=== PATIENT | male | born 1950 | race Caucasian/White ===

== ENCOUNTER 2017-11-07 12:28 | Emergency (ER) | payer MEDICARE, OTHER ==
[2017-11-07] MEDS ORDERED: ONDANSETRON HCL INJ/PF 4 MG/2 ML SDV IV ONE (13:26)
[2017-11-07] MEDS ORDERED: KETOROLAC TROMETHAMINE INJ/PF 30 MG/1 ML SDV IV ONE (13:26)
--- NOTE | 2017-11-07 13:28 | ER Document Report ---
ED Medical Screen (RME) - General Chief Complaint: Abdominal Problem Stated Complaint: ABDOMINAL PAIN Time Seen by Provider: 11/07/17 13:24 Notes: Patient said he has been experiencing pain in the right lower quadrant of his abdomen since last evening. Is gotten worse this morning. Has never had this before. Has not had any vomiting or diarrhea. No fever. No UTI symptoms and no history of kidney stones. He does have a history of BPH for which she is on Flomax. Does not take medicines for anything else besides his prostate. Patient did say he saw some blood in his bowel movement 2 days ago. Has never had that before. TRAVEL OUTSIDE OF THE [place] IN LAST 30 DAYS: No - Related Data Allergies/Adverse Reactions: No Known Allergies Allergy (Verified 11/07/17 12:29) Past Medical History - Social History Frequency of alcohol use: None Drug Abuse: None Endocrine Medical History: Reports: Hx Diabetes Mellitus Type 2 Renal/ Medical History: Denies: Hx Peritoneal Dialysis Past Surgical History: Reports: Hx Orthopedic Surgery - right rotator cuff repair Physical Exam - Vital signs Vitals: Temp Pulse Resp BP Pulse Ox 98.7 F 69 18 145/84 H 94 11/07/17 12:48 11/07/17 12:48 11/07/17 12:48 11/07/17 12:48 11/07/17 12:48 Course - Vital Signs Vital signs: Temp Pulse Resp BP Pulse Ox 98.7 F 69 18 145/84 H 94 11/07/17 12:48 11/07/17 12:48 11/07/17 12:48 11/07/17 12:48 11/07/17 12:48
[2017-11-07] MEDS ORDERED: HYDROMORPHONE HCL INJ/PF 2 MG/ML AMPULE IV ONE (14:03)
--- NOTE | 2017-11-07 14:12 | ER Document Report ---
ED General - General Chief Complaint: Abdominal Problem Stated Complaint: ABDOMINAL PAIN Time Seen by Provider: 11/07/17 13:24 Mode of Arrival: Ambulatory Information source: Patient Notes: This 67-year-old male presents to the emergency department with complaints of right lower quadrant abdominal pain since yesterday. Patient denies trauma. Reports he has vomited once this morning after drinking water. Denies fever diarrhea. Reports a few days ago he saw blood in his stool but it was after he had a some constipation. He reports he had a bowel movement since that time without further blood. He reports he has never had this pain before. Patient reports voiding issues, does have a history of BPH is taking several medications for this reports this is not new. Patient reports he ate turkey gupta and eggs this morning for breakfast but has not had any more food since 830 this morning. Last p.o. intake was at 1030. TRAVEL OUTSIDE OF THE [place] IN LAST 30 DAYS: No - HPI Onset: Yesterday Onset/Duration: Sudden, Persistent Quality of pain: Sharp Severity: Severe Pain Level: 4 Associated symptoms: Vomiting Exacerbated by: Denies Relieved by: Denies Similar symptoms previously: No Recently seen / treated by doctor: No - Related Data Allergies/Adverse Reactions: No Known Allergies Allergy (Verified 11/07/17 12:29) Past Medical History - Social History Smoking Status: Former Smoker Cigarette use (# per day): No Frequency of alcohol use: None Drug Abuse: None Lives with: Family Family History: Reviewed & Not Pertinent Patient has suicidal ideation: No Patient has homicidal ideation: No Renal/ Medical History: Reports: Hx Benign Prostatic Hyperplasia. Denies: Hx Peritoneal Dialysis Past Surgical History: Reports: Hx Orthopedic Surgery - right rotator cuff repair Review of Systems - Review of Systems Notes: Review HPI for review of systems., All other systems negative Physical Exam - Vital signs Vitals: Temp Pulse Resp BP Pulse Ox 98.7 F 69 18 145/84 H 94 11/07/17 12:48 11/07/17 12:48 11/07/17 12:48 11/07/17 12:48 11/07/17 12:48 - Notes Notes: PHYSICAL EXAMINATION: GENERAL: nontoxic looking, looks like he is hurting HEAD: Atraumatic, normocephalic. EYES: Pupils equal round , extraocular movements intact, sclera anicteric, conjunctiva are normal. ENT: nares patent, Moist mucous membranes. NECK: Normal range of motion, supple without lymphadenopathy LUNGS: CTAB and equal. No wheezes rales or rhonchi. HEART: Regular rate and rhythm without murmurs ABDOMEN: Soft, c/o RLQ pain with palpation, slight Right CVA tenderness, c/o increased pain when laying flat EXTREMITIES: Normal range of motion, no pitting edema. No cyanosis. NEUROLOGICAL: Cranial nerves grossly intact. Normal sensory/motor exams. PSYCH: Normal mood, normal affect. SKIN: Warm, Dry, normal turgor, no rashes or lesions noted Course - Re-evaluation Re-evalutation: 11/07/17 14:[address] were ordered by RME provider. Pt RLQ painful to touch, movement. Possible appendicitis. Dr. Villagomez the surgeon consulted by me for possible appendicitis. He is in surgery now. Dia in the OR was instructed to tell Dr. Villagomez of consult. toradol did not help with pain. Dilaudid ordered. 11/07/17 14:49 dr villagomez in the ED, assessed patient, pt reports pain decreased, waiting on CT at 1600. 11/07/17 17:11 CT shows kidney stone 4 mm right ureter causing mild hydronephrosis mild dilatation of the proximal right ureter to her. CBC labs unremarkable. Consult Dr. Garrett, agrees with plan of care, cipro, discharge home. pt and updated on ct results. dr villagomez into room, reviewed ct. pt verbalized understanding to plan of care. doesn't want percocet. will attempt pain relief with norco. pt has not taken his flomax today. 11/07/17 19:10 PT VOIDED, REPORTS [place] took care of pain. Will discharge patient home with prescription for [place] Cipro and instructed to follow-up with urologist within the next 5 days. Patient was also instructed to return to the emergency department for increased pain fevers vomiting. Verbalized understanding tall instructions. Pt is in good spirits upon discharge - Vital Signs Vital signs: Temp Pulse Resp BP Pulse Ox 98 F 69 16 121/74 91 L 11/07/17 19:39 11/07/17 12:48 11/07/17 19:39 11/07/17 19:32 11/07/17 19:39 - Laboratory Result Diagrams: 11/07/17 14:15 11/07/17 14:15 Laboratory results interpreted by me: 11/07/17 11/07/17 11/07/17 13:28 14:15 14:15 Seg Neutrophils % 83.9 H Lymphocytes % 10.3 L BUN 23 H Creatinine 1.40 H Est GFR (Non-Af Amer) 51 L Glucose 135 H Lipase 402.6 H Urine Blood LARGE H Ur Leukocyte Esterase LARGE H - Diagnostic Test Radiology reviewed: Image reviewed, Reports reviewed - Diagnostic report text EXAM DESCRIPTION: CT ABD/PELVIS WITH IV ORAL COMPLETED DATE/TIME : 11/07/2017 4:22 pm REASON FOR STUDY: RLQ pain, also tender epigastrium COMPARISON: None. TECHNIQUE: CT scan of the abdomen and pelvis performed using helical scanning technique with dynamic intravenous contrast injection. No oral contrast. Images reviewed with lung, soft tissue, and bone windows. Reconstructed coronal and sagittal MPR images reviewed. Delayed images for evaluation of the urinary system also acquired. All images stored on PACS. All CT scanners at this facility use dose modulation, iterative reconstruction, and/ or weight based dosing when appropriate to reduce radiation dose to as low as reasonably achievable (ALARA). [facility]: Dose Right [facility]: CareDose [facility]: Dose Right [facility]: Teradose 4D [facility]: [employer] CONTRAST TYPE AND DOSE: contrast/ concentration: Isovue 370.00 mg/ml; Total Contrast Delivered: 100.0 ml; Total Saline Delivered: 72.0 ml 100 mL Isovue 370- low osmolar. RENAL FUNCTION: GFR > 60. RADIATION DOSE: CT Rad equipment meets quality standard of care and radiation dose reduction techniques were employed. CTDIvol: 13.9 - 17.2 mGy. DLP: 1715 mGy-cm.. LIMITATIONS: None. FINDINGS: LOWER CHEST: No significant findings. No nodules or infiltrates. LIVER: Normal size. No masses. No dilated ducts. SPLEEN: Normal size. No focal lesions. PANCREAS: No masses. No significant calcifications. No adjacent inflammation or peripancreatic fluid collections. Pancreatic duct not dilated. GALLBLADDER: No identified stones by CT criteria. No inflammatory changes to suggest cholecystitis. ADRENAL GLANDS: No significant masses or asymmetry. RIGHT KIDNEY AND URETER: There is moderate perinephric fat stranding. Mild dilatation of the right renal pelvis and proximal right ureter. There is a 4 mm stone in the proximal right ureter. The distal aspect of the ureter is decompressed. There is no excretion of contrast into the right kidney collecting system on the delayed images. LEFT KIDNEY AND URETER: No solid masses. No significant calcifications. No hydronephrosis or hydroureter. AORTA AND VESSELS: No aneurysm. No dissection. Renal arteries , SMA, celiac without stenosis. RETROPERITONEUM: No retroperitoneal adenopathy , hemorrhage or masses. BOWEL AND PERITONEAL CAVITY: No masses or inflammatory changes. No free fluid or peritoneal masses. APPENDIX: Normal. PELVIS: No mass. No free fluid. Normal bladder. ABDOMINAL WALL: Bilateral fat containing inguinal hernias are present. BONES: No significant or acute findings. OTHER: No other significant finding. IMPRESSION: 4 mm stone in the proximal right ureter causing mild hydronephrosis and mild dilatation of the proximal right ureter. There is also moderate right perinephric fat stranding. No excretion of contrast on delayed imaging. As such, superimposed renal and collecting system infection of this obstructing stone is not excluded - Consults kelley Time consulted: 14:05 Reason for consultation: 11/07/17 14:17 possible appendicitis. Discharge - Discharge Clinical Impression: RLQ abdominal pain, Kidney stone on right side Condition: Stable Disposition: HOME, SELF-CARE Instructions: Antinausea Medication ([facility]), Ciprofloxacin ([facility]), Kidney Stone ( [facility]), Oral Narcotic Medication ([facility]), Pain Medication Injection ([facility]), Toradol Injection ([facility]) Additional Instructions: *You have been evaluated for abdominal pain, kidney stone *Take medication as prescribed *Strain your urine *Follow up with your primary care provider within 5 days *Follow up with a urology within one week *Return to ED for worsening condition, changes, needs *Return to ED if not better in 24 hours Monitor your blood pressure. Your blood pressure was elevated today. This may be because you were anxious, in pain or because you need medication. It is important to follow up with your primary care provider for full evaluation. Prescriptions: Ciprofloxacin HCl [Cipro 500 mg Tablet] 500 mg PO BID #20 tablet Hydrocodone/Acetaminophen [[place] 5-325 Tablet] 1 each PO QID #15 tablet Forms: Elevated Blood Pressure
[2017-11-07 14:46] LABS: ABSOLUTE MONOCYTES (AUTO) 0.5 10^3/uL (0.1-1.4); ABSOLUTE NEUT (AUTO) 8.1 10^3/uL (1.7-8.2); BASOPHILS % (AUTO) 0.4 % (0-2); EOSINOPHILS % (AUTO) 0.4 % (0-6); HEMOGLOBIN 15.7 g/dL (13.5-17.0); LYMPHOCYTES % (AUTO) 10.3 % (13-45); MEAN CORPUSCULAR HEMOGLOBIN 31.2 pg (27.0-33.4); MEAN CORPUSCULAR HGB CONC 34.9 g/dL (32.0-36.0); MEAN CORPUSCULAR VOLUME 90 fl (80-97); PLATELET COUNT 153 10^3/uL (150-450); RED BLOOD COUNT 5.03 10^6/uL (4.35-5.55); RED CELL DISTRIBUTION WIDTH 13.2 % (11.5-14.0); SEGMENTED NEUTROPHILS % (AUTO) 83.9 % (42-78); TOTAL CELLS COUNTED % (AUTO) 100 %; WHITE BLOOD COUNT 9.6 10^3/uL (4.0-10.5)
[2017-11-07 14:57] LABS: APPEARANCE,URINE SLIGHTLY-CLOUDY; BILIRUBIN,URINE NEGATIVE (NEGATIVE); COLOR,URINE YELLOW; GLUCOSE, URINE NEGATIVE (NEGATIVE); KETONES,URINE NEGATIVE (NEGATIVE); LEUKOCYTE ESTERASE,URINE LARGE (NEGATIVE); NITRITE,URINE NEGATIVE (NEGATIVE); PROTEIN,URINE NEGATIVE (NEGATIVE); URINE SPECIFIC GRAVITY 1.021; UROBILINOGEN,URINE NEGATIVE mg/dL (<2.0)
[2017-11-07 15:02] LABS: ALANINE AMINOTRANSFERASE 38 U/L (21-72); ALBUMIN 4.4 g/dL (3.5-5.0); ALKALINE PHOSPHATASE 70 U/L (38-126); ANION GAP 6 (5-19); ASPARTATE AMINO TRANSFERASE 24 U/L (17-59); BILIRUBIN,DIRECT 0.3 mg/dL (0.0-0.4); BILIRUBIN,TOTAL 0.7 mg/dL (0.2-1.3); BLOOD UREA NITROGEN 23 mg/dL (7-20); CALCIUM 9.5 mg/dL (8.4-10.2); CARBON DIOXIDE 24 mmol/L (22-30); CHLORIDE 107 mmol/L (98-107); GLUCOSE 135 mg/dL (75-110); LIPASE 402.6 U/L (23-300); POTASSIUM 4.6 mmol/L (3.6-5.0); SODIUM 137.2 mmol/L (137-145); TOTAL PROTEIN 7.4 g/dL (6.3-8.2)
--- NOTE | 2017-11-07 16:46 | RADIOLOGY REPORT (SQ) ---
EXAM DESCRIPTION: CT ABD/PELVIS WITH IV ORAL COMPLETED DATE/TIME: 11/07/2017 4:22 pm REASON FOR STUDY: RLQ pain, also tender epigastrium COMPARISON: None. TECHNIQUE: CT scan of the abdomen and pelvis performed using helical scanning technique with dynamic intravenous contrast injection. No oral contrast. Images reviewed with lung, soft tissue, and bone windows. Reconstructed coronal and sagittal MPR images reviewed. Delayed images for evaluation of the urinary system also acquired. All images stored on PACS. All CT scanners at this facility use dose modulation, iterative reconstruction, and/or weight based d osing when appropriate to reduce radiation dose to as low as reasonably achievable (ALARA). [facility]: Dose Right [facility]: CareDose [facility]: Dose Right [facility]: Teradose 4D [facility]: [employer] CONTRAST TYPE AND DOSE: contrast/concentration: Isovue 370.00 mg/ml; Total Contrast Delivered: 100.0 ml; Total Saline Delivered: 72.0 ml 100 mL Isovue 370- low osmolar. RENAL FUNCTION: GFR > 60. RADIATION DOSE: CT Rad equipment meets quality standard of care and radiation dose reduction techniq ues were employed. CTDIvol: 13.9 - 17.2 mGy. DLP: 1715 mGy-cm.. LIMITATIONS: None. FINDINGS: LOWER CHEST: No significant findings. No nodules or infiltrates. LIVER: Normal size. No masses. No dilated ducts. SPLEEN: Normal size. No focal lesions. PANCREAS: No masses. No significant calcifications. No adjacent inflammation or peripancreatic fluid collections. Pancreatic duct not dilated. GALLBLADDER: No identified stones by CT criteria. No inflammatory changes to suggest cholecystitis. ADRENAL GLANDS: No significant masses or asymmetry. RIGHT KIDNEY AND URETER: There is moderate perinephric fat stranding. Mild dilatation of the right r enal pelvis and proximal right ureter. There is a 4 mm stone in the proximal right ureter. The dist al aspect of the ureter is decompressed. There is no excretion of contrast into the right kidney col lecting system on the delayed images. LEFT KIDNEY AND URETER: No solid masses. No significant calcifications. No hydronephrosis or hydr oureter. AORTA AND VESSELS: No aneurysm. No dissection. Renal arteries, SMA, celiac without stenosis. RETROPERITONEUM: No retroperitoneal adenopathy, hemorrhage or masses. BOWEL AND PERITONEAL CAVITY: No masses or inflammatory changes. No free fluid or peritoneal masses. APPENDIX: Normal. PELVIS: No mass. No free fluid. Normal bladder. ABDOMINAL WALL: Bilateral fat containing inguinal hernias are present. BONES: No significant or acute findings. OTHER: No other significant finding. IMPRESSION: 4 mm stone in the proximal right ureter causing mild hydronephrosis and mild dilatation of the proximal right ureter. There is also moderate right perinephric fat stranding. No excretion of contrast on delayed imaging. As such, superimposed renal and collecting system infection of this obstructing stone is not excluded. TECHNICAL DOCUMENTATION: JOB ID: [id number] Quality ID # [id number]: Final reports with documentation of one or more dose reduction techniques (e.g., Au tomated exposure control, adjustment of the mA and/or kV according to patient size, use of iterative reconstruction technique) 2010 [employer]- All Rights Reserved Reading location - IP/workstation name: [email or web address]
[2017-11-07] MEDS ORDERED: CIPROFLOXACIN 400 MG/D5W RTU 400 MG/200 ML RTUPB IV ONE (17:03)
[2017-11-07] MEDS ORDERED: HYDROCODONE/ACETAMINOPHEN 5-325 MG TABLET PO ONE (17:11)
[2017-11-07] MEDS ORDERED: NORMAL SALINE 1000 ML 1,000 ML IV ONE (17:11)
--- NOTE | 2017-11-07 17:34 | PDOC CONSULTATION ---
History of Present Illness Admission Date/PCP: 11/07/17 Patient complains of: RLQ pains and Right flank pains History of Present Illness: DAI MARSH is a 67 year old male who c/o RLQ pains radiating to right flank started yesterday am. Associated nausea. 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 Past Medical History Endocrine Medical History: Reports: Diabetes Mellitus Type 2 Past Surgical History Past Surgical History: Reports: Orthopedic Surgery - right rotator cuff repair Social History Lives with: Family Smoking Status: Former Smoker Family History Family History: Reviewed & Not Pertinent Parental Family History Reviewed: No Children Family History Reviewed: No Sibling(s) Family History Reviewed.: No Medication/Allergy Allergies/Adverse Reactions: No Known Allergies Allergy (Verified 11/07/17 12:29) Review of Systems Constitutional: PRESENT: as per HPI Cardiovascular: PRESENT: other - no cough/no chest pains Gastrointestinal: PRESENT: abdominal pain, nausea Genitourinary: PRESENT: other - no dysuria Neurological: PRESENT: other - no seizures Endocrine: PRESENT: other - no polyuria Hematologic/Lymphatic: PRESENT: other - no easy bruising Physical Exam Vital Signs: Temp Pulse Resp BP Pulse Ox 98.7 F 69 18 145/84 H 94 11/07/17 12:48 11/07/17 12:48 11/07/17 12:48 11/07/17 12:48 11/07/17 12:48 Intake & Output 11/06/17 11/07/17 11/08/17 06:59 06:59 06:59 Weight 96.7 kg General appearance: PRESENT: mild distress Head exam: PRESENT: atraumatic, normocephalic Eye exam: PRESENT: conjunctiva pink Mouth exam: PRESENT: moist Neck exam: PRESENT: full ROM Respiratory exam: PRESENT: clear to auscultation rosanne Cardiovascular exam: PRESENT: RRR Pulses: PRESENT: normal radial pulses Vascular exam: PRESENT: normal capillary refill GI/Abdominal exam: PRESENT: soft, tenderness - RLQ and right flank Rectal exam: PRESENT: deferred Extremities exam: PRESENT: full ROM Musculoskeletal exam: PRESENT: ambulatory Neurological exam: PRESENT: alert, oriented to person, oriented to place, oriented to time, oriented to situation Psychiatric exam: PRESENT: appropriate affect Results Laboratory Results: 11/07/17 14:15 11/07/17 14:15 11/07/17 11/07/17 11/07/17 13:28 14:15 14:15 WBC 9.6 RBC 5.03 Hgb 15.7 Hct 45.0 MCV 90 MCH 31.2 MCHC 34.9 RDW 13.2 Plt Count 153 Seg Neutrophils % 83.9 H Lymphocytes % 10.3 L Monocytes % 5.0 Eosinophils % 0.4 Basophils % 0.4 Absolute Neutrophils 8.1 Absolute Lymphocytes 1.0 Absolute Monocytes 0.5 Absolute Eosinophils 0.0 Absolute Basophils 0.0 Sodium 137.2 Potassium 4.6 Chloride 107 Carbon Dioxide 24 Anion Gap 6 BUN 23 H Creatinine 1.40 H Est GFR ( Amer) > 60 Est GFR (Non-Af Amer) 51 L Glucose 135 H Calcium 9.5 Total Bilirubin 0.7 AST 24 ALT 38 Alkaline Phosphatase 70 Total Protein 7.4 Albumin 4.4 Lipase 402.6 H Urine Color YELLOW Urine Appearance SLIGHTLY-CLOUDY Urine pH 5.0 Ur Specific [place] 1.021 Urine Protein NEGATIVE Urine Glucose (UA) NEGATIVE Urine Ketones NEGATIVE Urine Blood LARGE H Urine Nitrite NEGATIVE Ur Leukocyte Esterase LARGE H Urine WBC (Auto) 71 Urine RBC (Auto) 32 Impressions: Abdomen/Pelvis CT 11/07/17 00:00 IMPRESSION: 4 mm stone in the proximal right ureter causing mild hydronephrosis and mild dilatation of the proximal right ureter. There is also moderate right perinephric fat stranding. No excretion of contrast on delayed imaging. As such, superimposed renal and collecting system infection of this obstructing stone is not excluded. Assessment & Plan - Diagnosis (1) RLQ abdominal pain Is this a current diagnosis for this admission?: Yes - Time Time Spent: 30 to 50 Minutes - Plan Summary Plan Summary: JUst had CT scan tonsil hospital showed normal appendix. Has a right kidney stone No need for gen surgical intervention
[2017-11-07] MEDS ORDERED: TAMSULOSIN HCL 0.4 MG CAP.SR.24H PO ONE (17:49)
[2017-11-07] MEDS ORDERED: ONDANSETRON ODT 4 MG TAB (6 TAB/ER DISP) PO PRN (19:12)
[2017-11-07] MEDS ORDERED: HYDROCODONE/ACETAMINOPHEN 5-325 MG (6 TAB/ER DISP) PO PRN (19:12)
[2017-11-07 19:39] VITALS: BP 121/74
== END 2017-11-07 19:41 | disposition home or self-care (01) ==
LOC: ER 12:28
DX: N13.2 Hydronephrosis with renal and ureteral calculous obstruction (principal); R10.31 Right lower quadrant pain; R11.10 Vomiting, unspecified; N40.0 Benign prostatic hyperplasia without lower urinary tract symptoms; Z79.899 Other long term (current) drug therapy; Z87.891 Personal history of nicotine dependence
CPT/HCPCS: 99284; 96375; 96365; 36415; 87086; 83690; 85025; 87088; 80053; 81001; 74177; J1885; J1170; A9270 ×4; J2405; J7030; J0744

== ENCOUNTER → 2018-03-04 | Outpatient (CLI) | payer OTHER, MEDICARE ==
--- NOTE | 2018-02-25 22:53 | EKG REPORT ---
SEVERITY:- ABNORMAL ECG - SINUS RHYTHM LEFT ANTERIOR FASCICULAR BLOCK ABNRM R PROG, CONSIDER ASMI OR LEAD PLACEMENT : Confirmed by: Malachi Lopez 25-Feb-2018 22:52:30
[~2018-03-04] MED LIST: BUPIVACAINE HCL 0.5%-EPI 1:200000 INJ/PF 30 ML VIAL ONE; BUPIVACAINE INJ/PF LIPOSOME/PF 266 MG/20 ML SDV IJ PRN; BUPIVACAINE INJ/PF LIPOSOME/PF 266 MG/20 ML SDV ONE; CEFAZOLIN 2 GM/D5W RTU 2 GM/50 ML RTUPB IV PRN; IBUPROFEN 800 MG/NS 250 ML IV PRN; LACTATED RINGERS 1000 ML IV PRN; LANSOPRAZOLE 15 MG TAB.RAP.DR PO PRN; OXYCODONE HCL SR 10 MG TABLET PO PRN
[2018-03-04 10:50] VITALS: BP 141/84
== END ==
LOC: UNDOADMIN 09:28 → INOR 09:28 → OD 09:55 → UNDODISIN 10:49 → EDSTATUS 11:45
PROVIDERS: ATTEND Orthopaedic Surgery
DX: Z01.810 Encounter for preprocedural cardiovascular examination (principal); Z01.812 Encounter for preprocedural laboratory examination; M19.012 Primary osteoarthritis, left shoulder; I44.4 Left anterior fascicular block
CPT/HCPCS: 93005; 86900; 86901; 36415; 86850; 93010; J7050; J1741; C9290; J0690; J3490

== ENCOUNTER → 2018-03-30 | Outpatient (CLI) | payer OTHER, MEDICARE ==
[2018-03-30 13:27] LABS: ABSOLUTE EOSINOPHILS # (AUTO) 0.1 10^3/uL (0.0-0.6); ABSOLUTE LYMPHOCYTES (AUTO) 1.4 10^3/uL (0.5-4.7); ABSOLUTE MONOCYTES (AUTO) 0.4 10^3/uL (0.1-1.4); ABSOLUTE NEUT (AUTO) 3.7 10^3/uL (1.7-8.2); BASOPHILS % (AUTO) 0.6 % (0-2); EOSINOPHILS % (AUTO) 1.9 % (0-6); LYMPHOCYTES % (AUTO) 24.1 % (13-45); MEAN CORPUSCULAR HGB CONC 34.7 g/dL (32.0-36.0); MEAN CORPUSCULAR VOLUME 89 fl (80-97); MONOCYTES % (AUTO) 7.4 % (3-13); PLATELET COUNT 158 10^3/uL (150-450); RED BLOOD COUNT 5.16 10^6/uL (4.35-5.55); RED CELL DISTRIBUTION WIDTH 13.4 % (11.5-14.0); TOTAL CELLS COUNTED % (AUTO) 100 %; WHITE BLOOD COUNT 5.6 10^3/uL (4.0-10.5)
[2018-03-30 13:48] LABS: ANION GAP 12 (5-19); BLOOD UREA NITROGEN 19 mg/dL (7-20); CARBON DIOXIDE 26 mmol/L (22-30); CHLORIDE 104 mmol/L (98-107); GLUCOSE 175 mg/dL (75-110); POTASSIUM 4.9 mmol/L (3.6-5.0); SODIUM 141.9 mmol/L (137-145)
[2018-03-30 13:59] LABS: APPEARANCE,URINE CLEAR; BILIRUBIN,URINE NEGATIVE (NEGATIVE); COLOR,URINE YELLOW; GLUCOSE, URINE >=500 mg/dL (NEGATIVE); KETONES,URINE NEGATIVE (NEGATIVE); LEUKOCYTE ESTERASE,URINE TRACE (NEGATIVE); NITRITE,URINE NEGATIVE (NEGATIVE); PROTEIN,URINE NEGATIVE (NEGATIVE); URINE SPECIFIC GRAVITY 1.008; UROBILINOGEN,URINE NEGATIVE mg/dL (<2.0)
--- NOTE | 2018-03-30 14:14 | RADIOLOGY REPORT (SQ) ---
EXAM DESCRIPTION: CHEST SINGLE VIEW COMPLETED DATE/TIME: 03/30/2018 12:59 pm REASON FOR STUDY: PRE-OP COMPARISON: None. EXAM PARAMETERS: NUMBER OF VIEWS: One view. TECHNIQUE: Single frontal radiographic view of the chest acquired. RADIATION DOSE: NA LIMITATIONS: None. FINDINGS: LUNGS AND PLEURA: No opacities, masses or pneumothorax. No pleural effusion. MEDIASTINUM AND HILAR STRUCTURES: No masses. Contour normal. HEART AND VASCULAR STRUCTURES: Heart normal in size. Normal vasculature. BONES: No acute findings. HARDWARE: None in the chest. OTHER: No other significant finding. IMPRESSION: NO ACUTE RADIOGRAPHIC FINDING IN THE CHEST. TECHNICAL DOCUMENTATION: JOB ID: [id number] [employer]- All Rights Reserved Reading location - IP/workstation name: [email or web address]
== END ==
LOC: OD 12:33
PROVIDERS: ATTEND Orthopaedic Surgery
DX: Z01.810 Encounter for preprocedural cardiovascular examination (principal); Z01.812 Encounter for preprocedural laboratory examination; Z01.818 Encounter for other preprocedural examination
CPT/HCPCS: 36415; 71045; 80048; 81001; 85025

== ENCOUNTER 2018-04-22 05:23 | Inpatient (IN) | payer OTHER, MEDICARE ==
[~2018-04-22 05:23] MED LIST changes: -BUPIVACAINE HCL 0.5%-EPI 1:200000 INJ/PF 30 ML VIAL ONE; -BUPIVACAINE INJ/PF LIPOSOME/PF 266 MG/20 ML SDV IJ PRN; -BUPIVACAINE INJ/PF LIPOSOME/PF 266 MG/20 ML SDV ONE; +IBUPROFEN 800 MG in NORMAL SALINE 250 ML IV PRN; -IBUPROFEN 800 MG/NS 250 ML IV PRN; -LACTATED RINGERS 1000 ML IV PRN; +RINGERS SOLUTION,LACTATED 1,000 ML IV PRN
[2018-04-22] MEDS ORDERED: BUPIVACAINE INJ/PF LIPOSOME/PF 266 MG/20 ML SDV ONE (06:32)
[2018-04-22] MEDS ORDERED: BUPIVACAINE HCL 0.5%-EPI 1:200000 INJ/PF 30 ML VIAL ONE (06:32)
[2018-04-22] MEDS ORDERED: FENTANYL CITRATE INJ/PF 100 MCG/2 ML AMPUL ONE (07:03)
[2018-04-22] MEDS ORDERED: MIDAZOLAM 2 MG/2 ML INJ ONE (07:03)
[2018-04-22] MEDS ORDERED: DEXAMETHASONE SOD PHOSPHATE INJ 4 MG/1 ML VIAL ONE (07:03)
[2018-04-22] MEDS ORDERED: EPHEDRINE SULFATE INJ 50 MG/1 ML AMPULE ONE (07:04)
[2018-04-22] MEDS ORDERED: HYDROMORPHONE HCL INJ/PF 2 MG/ML AMPULE ONE (07:04)
[2018-04-22] MEDS ORDERED: PROPOFOL INJ 200 MG/20 ML VIAL IV ONE ×2 (07:04→07:47)
[2018-04-22] MEDS ORDERED: ONDANSETRON HCL INJ/PF 4 MG/2 ML SDV ONE (07:04)
[2018-04-22] MEDS ORDERED: ACETAMINOPHEN 1,000 MG/100 ML RTUPB IV ONE (07:04)
[2018-04-22] MEDS ORDERED: TRANEXAMIC ACID INJ/PF 1,000 MG/10 ML SDV IV ONE ×2 (07:23→12:12)
[2018-04-22] MEDS ORDERED: MEPERIDINE HCL/PF INJ 25 MG/1 ML DISP.SYRIN IV PRN (08:47)
[2018-04-22] MEDS ORDERED: ONDANSETRON HCL INJ/PF 4 MG/2 ML SDV IV PRN ×2 (08:47→12:00)
[2018-04-22] MEDS ORDERED: DIPHENHYDRAMINE HCL 50 MG/ML VIAL IV PRN (08:47)
[2018-04-22] MEDS ORDERED: FENTANYL CITRATE INJ/PF 100 MCG/2 ML AMPUL IV PRN ×3 (08:47)
[2018-04-22] MEDS ORDERED: OXYCODONE-ACETAMINOPHEN 5-325 MG TABLET PO PRN ×2 (08:47)
[2018-04-22] MEDS ORDERED: PROMETHAZINE HCL INJ 25 MG/1 ML VIAL IV PRN ×2 (08:47)
[2018-04-22] MEDS ORDERED: MORPHINE SULFATE 10 MG/ML INJ IV PRN (08:47)
[2018-04-22] MEDS ORDERED: ROCURONIUM BROMIDE INJ 50 MG/5 ML VIAL IV ONE (09:43)
[2018-04-22] MEDS ORDERED: SUCCINYLCHOLINE CHLORIDE INJ 200 MG/10 ML VIAL ONE (09:43)
[2018-04-22] MEDS ORDERED: MAG HYDROX/AL HYDROX/SIMETH SUSP 30 ML UDCUP PO PRN (12:00)
[2018-04-22] MEDS ORDERED: RINGERS SOLUTION,LACTATED 1,000 ML IV PRN (12:00)
--- NOTE | 2018-04-22 12:24 | Operative Report ---
Operative Report DATE OF SURGERY: 04/22/18 PREOPERATIVE DIAGNOSIS: Left shoulder osteoarthritis POSTOPERATIVE DIAGNOSIS: Same OPERATION: Left total shoulder arthroplasty SURGEON: ANY PERDOMO ANESTHESIA: GA TISSUE REMOVED OR ALTERED: Humeral head COMPLICATIONS: None ESTIMATED BLOOD LOSS: 200 mL INTRAOPERATIVE FINDINGS: As above PROCEDURE: Arthrex apex stem size 10 mm Humeral head component was a 52/22 mm Glenoid component was a size large Patient received antibiotics in the preop holding area. Patient was transferred to the OR where the patient was successfully intubated. Patient then was secured in a beachchair position where the left shoulder was prepped and draped in a normal sterile surgical fashion. Once timeout was done identifying the left shoulder the correct site I proceeded to use quarter percent Marcaine with epinephrine and injected in the anticipated incision. I used a 10 blade to status my incision and then used hemostasis with electrocautery. I exposed the deltopectoral interval and proceeded to do a deltopectoral approach. I retracted the conjoined tendon medially and dissecting the cephalic vein and deltoid and retracting it laterally. I reflected the subscapularis tendon off the lesser tuberosity and tagged it with a Vicryl stitch. I proceeded to release capsule to dislocate the shoulder joint. While the head was dislocated I was able to resect inferior humeral osteophyte as expected Rotator cuff is intact. I proceeded applied the guide and pinned securely after I make sure I was satisfied with the angle and retroversion of my humeral head cut. Humeral head cut was done with an oscillating saw and the piece was placed in the back table for measurement. The pins were removed and then we proceeded to broach all the way up to the appropriate size. The humeral shaft was then reflected posteriorly and glenoid retractors were placed which gave us good glenoid exposure. Labrum and superior biceps stump was resected exposing the glenoid. I proceeded then to use the glenoid guide to drill and the center portion of the glenoid. I then proceeded to ream and I had bleeding bone. Also satisfied with the size of the glenoid and then proceeded to drill the peg holes. A trial glenoid was applied and then retractors removed and the humeral head was exposed. We placed a trial head and proceeded to test range of motion and stability. Once I was satisfied with the appropriate size used and I proceeded to remove all components. I first removed the glenoid and cemented it in. wait until cement had cured and hardened. Any excess cement was removed. I then proceeded to remove the humeral stem and placed the final stem. Of note I had placed 2 drill holes in the lesser tuberosity and place FiberWire with its appropriate needle for fixation and repair of the subscapularis tendon. I followed the Arthrex technique as described in their pamphlet. Secured the inferior and superior screw using the torque limiter. Once the glenoid and stem was seated I trialed with humeral head one more time and then placed the final humeral head component. Irrigation was done at this point. I tied the sutures as instructed by the technique. Placed the arm in range of motion and noticed that the repair was solid. At this point we turned to closure and we approximated the deltoid interval after removing the retractors and closed the subcutaneous tissue with 0 Vicryl and 2-0 Vicryl. Exparel had been injected deep and then superficially. I proceeded then to close my subtenons tissue with 0 Vicryl and 2-0 Vicryl for the dermis and malissa for skin. Acticoat was applied and then covered with an OpSite dressing. Drapes were removed and the sling was applied and then the patient was placed in supine position where the patient was extubated and sent to PACU in stable condition.
--- NOTE | 2018-04-22 13:10 | RADIOLOGY REPORT (SQ) ---
EXAM DESCRIPTION: SHOULDER LEFT 1 VIEW COMPLETED DATE/TIME: 04/22/2018 12:25 pm REASON FOR STUDY: post op total shoulder M19.012 PRIMARY OSTEOARTHRITIS, LEFT SHOULDER COMPARISON: None. NUMBER OF VIEWS: AP view TECHNIQUE: AP portable view images acquired of the left shoulder. LIMITATIONS: None. FINDINGS: Post left humeral head replacement, non cemented. Grossly normal alignment at the left gl enohumeral joint. Overlying skin malissa. Left clavicle, scapula, left upper ribs intact. IMPRESSION: Appropriate left postoperative shoulder film TECHNICAL DOCUMENTATION: JOB ID: [id number] [employer]- All Rights Reserved Reading location - IP/workstation name: [email or web address]
[2018-04-22] MEDS ORDERED: CEFAZOLIN 2 GM/D5W RTU 2 GM/50 ML RTUPB IV SCH (15:00)
[2018-04-22] MEDS: CEFAZOLIN 2 GM/D5W RTU 2 GM/50 ML RTUPB IV SCH ×2 (16:44→20:38)
[2018-04-22] MEDS: SENNOSIDES/DOCUSATE 8.6-50 MG 1 EACH TABLET PO SCH (17:35)
[2018-04-22] MEDS: IBUPROFEN 800 MG in NORMAL SALINE 250 ML IV SCH (17:35)
[2018-04-22] MEDS: METFORMIN HCL 500 MG TABLET PO SCH (17:35)
[2018-04-22] MEDS ORDERED: FINASTERIDE 5 MG TABLET PO SCH (22:00)
[2018-04-23] MEDS: IBUPROFEN 800 MG in NORMAL SALINE 250 ML IV SCH ×2 (02:42→10:42)
[2018-04-23] MEDS: CEFAZOLIN 2 GM/D5W RTU 2 GM/50 ML RTUPB IV SCH ×3 (03:45→14:06)
[2018-04-23 06:57] LABS: HEMATOCRIT 35.8 % (37.9-51.0); HEMOGLOBIN 12.6 g/dL (13.5-17.0); MEAN CORPUSCULAR HEMOGLOBIN 31.6 pg (27.0-33.4); MEAN CORPUSCULAR HGB CONC 35.1 g/dL (32.0-36.0); MEAN CORPUSCULAR VOLUME 90 fl (80-97); PLATELET COUNT 130 10^3/uL (150-450); RED BLOOD COUNT 3.97 10^6/uL (4.35-5.55); RED CELL DISTRIBUTION WIDTH 13.7 % (11.5-14.0); WHITE BLOOD COUNT 12.6 10^3/uL (4.0-10.5)
[2018-04-23 07:17] LABS: ANION GAP 13 (5-19); BLOOD UREA NITROGEN 26 mg/dL (7-20); CALCIUM 8.4 mg/dL (8.4-10.2); CARBON DIOXIDE 22 mmol/L (22-30); CHLORIDE 104 mmol/L (98-107); GLUCOSE 154 mg/dL (75-110); POTASSIUM 4.6 mmol/L (3.6-5.0); SODIUM 139.2 mmol/L (137-145)
[2018-04-23] MEDS: SENNOSIDES/DOCUSATE 8.6-50 MG 1 EACH TABLET PO SCH (09:20)
[2018-04-23] MEDS: METFORMIN HCL 500 MG TABLET PO SCH (09:20)
[2018-04-23] MEDS ORDERED: PRENATAL VITAMIN W DHA CAPSULE PO SCH (10:00)
[2018-04-23] MEDS ORDERED: TAMSULOSIN HCL 0.4 MG CAP.SR.24H PO SCH (10:00)
[2018-04-23] MEDS ORDERED: FINASTERIDE 5 MG TABLET PO SCH (10:00)
[2018-04-23 18:53] VITALS: BP 113/62
== END 2018-04-23 17:30 | disposition home health service (06) | DRG 483 ==
LOC: INOR 05:23 → 4W 12:57 → 4S 15:10
PROVIDERS: ADMIT Orthopaedic Surgery; ATTEND Orthopaedic Surgery
PROC: 0RRK0JZ Replacement of Left Shoulder Joint with Synthetic Substitute, Open Approach (ICD-10-PCS; principal; 2018-04-22 07:30)
DX: M19.012 Primary osteoarthritis, left shoulder (principal); Z87.891 Personal history of nicotine dependence
CPT/HCPCS: 01630; 36415; 80048; 82962; 83036; 85027; 86850; 86900; 86901; 88304; 88311; 94799; C1713; C9290; G8978-GP; G8979-GP; G8980-GP; G8984-GO; G8985-GO; J0131; J0330; J0690; J1100; J1170; J1741; J2250; J2405; J2704; J3010; J3490; J7050

== ENCOUNTER 2019-02-21 10:33 | Day surgery (SDC) | payer OTHER, MEDICARE ==
[~2019-02-21 10:33] MED LIST changes: -CEFAZOLIN 2 GM/D5W RTU 2 GM/50 ML RTUPB IV PRN; -IBUPROFEN 800 MG in NORMAL SALINE 250 ML IV PRN; -LANSOPRAZOLE 15 MG TAB.RAP.DR PO PRN; -OXYCODONE HCL SR 10 MG TABLET PO PRN; +PROPOFOL INJ 200 MG/20 ML VIAL IV ONE; -RINGERS SOLUTION,LACTATED 1,000 ML IV PRN
[2019-02-21] MEDS ORDERED: PROPOFOL INJ 200 MG/20 ML VIAL IV ONE (13:06)
[2019-02-21 13:48] VITALS: BP 134/68
--- NOTE | 2019-02-21 15:11 | Operative Report ---
Operative Report DATE OF SURGERY: 02/21/19 Operative Report: The risks, benefits and alternatives of the procedure including the risk of bleeding, perforation requiring surgery have been explained to the patient in detail and informed consent has been obtained. Patient was taken back to the endoscopy suite and placed in the left, lateral decubital position. Timeout was called. Propofol medication is administered. A rectal examination is done which did not reveal any masses, tears or fissures. An Olympus videoscope was introduced into the patient's rectum. The scope was then carefully advanced all the way to the cecum. Cecum was identified by the usual anatomical landmarks including the ileocecal valve as well as the appendiceal office. Photodocumentation is obtained. The scope was then sequentially pulled back via the various segments of the colon including the ascending colon, hepatic flexure, transverse colon, splenic flexure, descending colon and finally into the rectosigmoid portions of the colon. Retroflexion maneuvers performed. PREOPERATIVE DIAGNOSIS: Colorectal cancer screening POSTOPERATIVE DIAGNOSIS: Large polyp noted in the rectum that was removed via snare polypectomy and retrieved in 2 separate pieces. An Endo Clip was placed at the base of the cautery site to reduce the risk of post polypectomy bleeding. Diverticulosis without any evidence of diverticulitis. Internal hemorrhoids OPERATION: Colonoscopy with snare polypectomy SURGEON: JUAN MANUEL GORDON ANESTHESIA: LMAC TISSUE REMOVED OR ALTERED: As noted above. ESTIMATED BLOOD LOSS: None. INTRAOPERATIVE FINDINGS: None. PROCEDURE: Patient tolerated the procedure well. There is no post procedure complications. Discharge date 02/21/2019. Discharge diet: Regular. Discharge activity: Regular. 2 to 3-week follow-up to discuss findings. Wait on the pathology. Likely will need 3-year surveillance colonoscopy Patient is discharged in good condition.
== END 2019-02-21 13:50 | disposition home or self-care (01) ==
LOC: END 10:33
PROVIDERS: ATTEND Internal Medicine Gastroenterology
DX: Z12.11 Encounter for screening for malignant neoplasm of colon (principal); D12.8 Benign neoplasm of rectum; K57.30 Diverticulosis of large intestine without perforation or abscess without bleeding; K64.8 Other hemorrhoids; E11.9 Type 2 diabetes mellitus without complications; Z87.891 Personal history of nicotine dependence
CPT/HCPCS: 45385; 82962; 88305 ×2; J2704; 811; 88304

== ENCOUNTER 2019-03-23 22:38 | Inpatient (IN) | payer OTHER, MEDICARE ==
--- NOTE | 2019-03-23 23:23 | ER Document Report ---
ED Medical Screen (RME) - General Chief Complaint: Shortness Of Breath Stated Complaint: RIGHT RIB PAIN,FEELING HOT Time Seen by Provider: 03/23/19 23:03 Primary Care Provider: BREANNE GARCÍA FNP [Primary Care Provider] - Follow up as needed Notes: Patient is a 68-year-old male with a history of type 2 diabetes who presents to the emergency department with a chief complaint of right rib pain. Patient states that around 5 PM this afternoon he developed an acute onset of pain behind the right lower rib. Patient states he has had similar pain in the past when he had a pneumothorax that was spontaneous in the . Patient states he has been sweating profusely and having shortness of breath. Patient denies chest pain. Patient states he is also had a dry cough for about 1 day. Patient states that over the past month he did have a significant cough that lasted weeks but he was starting to feel better. Patient states he has had chills, low-grade fever and generally not feeling well. Patient did take 1 g of Tylenol around 10 PM tonight as well as 1 baby aspirin as he thought this could be cardiac. TRAVEL OUTSIDE OF THE [place] IN LAST 30 DAYS: No - Related Data Allergies/Adverse Reactions: No Known Allergies Allergy (Verified 02/21/19 10:59) Past Medical History - Past Medical History Cardiac Medical History: Denies: Hx Coronary Artery Disease, Hx Heart Attack, Hx Hypertension Pulmonary Medical History: Denies: Hx Asthma, Hx Bronchitis, Hx COPD, Hx Pneumonia, Hx Sleep Apnea Neurological Medical History: Denies: Hx Cerebrovascular Accident, Hx Seizures Endocrine Medical History: Reports: Hx Diabetes Mellitus Type 2. Denies: Hx Hyperthyroidism, Hx Hypothyroidism Renal/ Medical History: Reports: Hx Benign Prostatic Hyperplasia. Denies: Hx End Stage Renal Disease, Hx Kidney Stones, Hx Peritoneal Dialysis GI Medical History: Denies: Hx Gastroesophageal Reflux Disease Musculoskeltal Medical History: Reports Hx Arthritis - Shoulder BILAT, Denies Hx Fibromyalgia, Denies Hx Muscular Dystrophy Psychiatric Medical History: Denies: Hx Depression, Hx Post Traumatic Stress Disorder Traumatic Medical History: Reports: Hx Fractures - collarbones, bilateral; finger; 3 ribs; rosanne ankles Past Surgical History: Reports: Hx Orthopedic Surgery - right rotator cuff repair. Denies: Hx Appendectomy, Hx Bowel Surgery, Hx Cholecystectomy, Hx Coronary Artery Bypass Graft, Hx Gastric Bypass Surgery, Hx Herniorrhaphy, Hx Pacemaker, Hx Tonsillectomy - Immunizations Hx Diphtheria, Pertussis, Tetanus Vaccination: Yes History of Influenza Vaccine for 06/2017 - 11/2017 Season: Yes Influenza Administration Date for 06/2017 - 11/2017 Season: 06/07/18 Physical Exam - Vital signs Vitals: Temp Pulse Resp BP Pulse Ox 100.5 F H 114 H 20 128/79 H 94 03/23/19 22:45 03/23/19 22:45 03/23/19 22:45 03/23/19 22:45 03/23/19 22:45 - Cardiovascular Rhythm: Regular Heart sounds: Normal auscultation, S1 appreciated, S2 appreciated Course - Re-evaluation Re-evalutation: 03/23/19 23:22 I have greeted and performed a rapid initial assessment of this patient. A comprehensive ED assessment and evaluation of the patient, analysis of test r esults and completion of the medical decision making process will be conducted by additional ED providers. - Vital Signs Vital signs: Temp Pulse Resp BP Pulse Ox 100.5 F H 114 H 20 128/79 H 94 03/23/19 22:45 03/23/19 22:45 03/23/19 22:45 03/23/19 22:45 03/23/19 22:45 Doctor's Discharge - Discharge Referrals: BREANNE GARCÍA FNP [Primary Care Provider] - Follow up as needed
--- NOTE | 2019-03-23 23:39 | RADIOLOGY REPORT (SQ) ---
EXAM DESCRIPTION: XR CHEST 2 VIEWS COMPLETED DATE/TME: 03/23/2019 00:00 CLINICAL HISTORY: 68 years, Male, rt chest pain, hx pneumothorax COMPARISON: X-ray chest 03/30/2018 NUMBER OF VIEWS: TECHNIQUE: LIMITATIONS: None. FINDINGS: In retrospect, the prior study shows an ovoid lucency projecting over the lateral aspect of the right hemithorax. This may have represented a chronic loculated pneumothorax. The current study shows a possible small air-fluid level in the inferior aspect of this probably loculated pleural air collection. Findings raise the possibility of empyema. No evidence of acute pulmonary infiltrate. The heart and mediastinum are unremarkable. IMPRESSION: Possible right-sided empyema. A CT scan of the chest might prove helpful for further evaluation. copyright 2010 [employer]- All Rights Reserved
[2019-03-23 23:57] LABS: ABSOLUTE BASOPHILS # (AUTO) 0.1 10^3/uL (0.0-0.2); ABSOLUTE LYMPHOCYTES (AUTO) 0.8 10^3/uL (0.5-4.7); ABSOLUTE MONOCYTES (AUTO) 0.9 10^3/uL (0.1-1.4); ABSOLUTE NEUT (AUTO) 12.3 10^3/uL (1.7-8.2); BASOPHILS % (AUTO) 0.5 % (0-2); EOSINOPHILS % (AUTO) 0.2 % (0-6); HEMATOCRIT 44.2 % (37.9-51.0); LYMPHOCYTES % (AUTO) 5.6 % (13-45); MEAN CORPUSCULAR HEMOGLOBIN 30.4 pg (27.0-33.4); MEAN CORPUSCULAR HGB CONC 33.9 g/dL (32.0-36.0); MEAN CORPUSCULAR VOLUME 90 fl (80-97); MONOCYTES % (AUTO) 6.1 % (3-13); PLATELET COUNT 166 10^3/uL (150-450); RED BLOOD COUNT 4.93 10^6/uL (4.35-5.55); RED CELL DISTRIBUTION WIDTH 14.1 % (11.5-14.0); SEGMENTED NEUTROPHILS % (AUTO) 87.6 % (42-78); TOTAL CELLS COUNTED % (AUTO) 100 %; WHITE BLOOD COUNT 14.1 10^3/uL (4.0-10.5)
[2019-03-23 23:59] LABS: APPEARANCE,URINE CLEAR; BILIRUBIN,URINE NEGATIVE (NEGATIVE); COLOR,URINE YELLOW; GLUCOSE, URINE NEGATIVE (NEGATIVE); KETONES,URINE NEGATIVE (NEGATIVE); LEUKOCYTE ESTERASE,URINE NEGATIVE (NEGATIVE); NITRITE,URINE NEGATIVE (NEGATIVE); PROTEIN,URINE NEGATIVE (NEGATIVE); URINE SPECIFIC GRAVITY 1.023; UROBILINOGEN,URINE NEGATIVE mg/dL (<2.0)
[2019-03-24 00:10] LABS: ALANINE AMINOTRANSFERASE 24 U/L (21-72); ALBUMIN 4.6 g/dL (3.5-5.0); ALKALINE PHOSPHATASE 70 U/L (38-126); ANION GAP 13 (5-19); ASPARTATE AMINO TRANSFERASE 20 U/L (17-59); BILIRUBIN,TOTAL 0.9 mg/dL (0.2-1.3); BLOOD UREA NITROGEN 25 mg/dL (7-20); CALCIUM 9.8 mg/dL (8.4-10.2); CARBON DIOXIDE 21 mmol/L (22-30); CHLORIDE 106 mmol/L (98-107); GLUCOSE 144 mg/dL (75-110); LIPASE 163.3 U/L (23-300); POTASSIUM 4.2 mmol/L (3.6-5.0); SODIUM 139.9 mmol/L (137-145); TOTAL PROTEIN 7.6 g/dL (6.3-8.2)
[2019-03-24] MEDS ORDERED: NORMAL SALINE 500 ML IV ONE (01:19)
[2019-03-24] MEDS ORDERED: PIPERACILLIN/TAZOBACTAM 3.375 GM VIAL IV ONE (01:19)
[2019-03-24] MEDS ORDERED: VANCOMYCIN HCL INJ 1000 MG VIAL IV ONE ×2 (01:20→03:14)
[2019-03-24] MEDS ORDERED: ACETAMINOPHEN 325 MG TABLET PO ONE (01:35)
[2019-03-24] MEDS ORDERED: IBUPROFEN 800 MG TABLET ONE (02:04)
--- NOTE | 2019-03-24 02:27 | RADIOLOGY REPORT (SQ) ---
EXAM DESCRIPTION: CT CHEST ANGIOGRAPHY WITH IV CONTRAST COMPLETED DATE/TME: 03/24/2019 01:22 CLINICAL HISTORY: 68 years, Male, ? empyema on CXR COMPARISON: X-ray chest 03/23/2019 TECHNIQUE: Axial images of the chest were performed utilizing intravenous contrast, with sagittal and coronal MIP images and sagittal and coronal reformatted images. Images stored on PACS. All CT scanners at this facility use dose modulation, iterative reconstruction, and/or weight based dosing when appropriate to reduce radiation dose to as low as reasonably achievable (ALARA). [facility]: Dose Right [facility]: CareDose [facility]: Dose Right [facility]: Teradose 4D [facility]: [email or web address] LIMITATIONS: None. FINDINGS: As seen on the prior chest x-ray, there is a collection of air and a small amount of fluid in the lateral right thorax. This lesion has a somewhat thickened wall. I believe this abnormality is most likely in the pleural space, compatible with empyema, however, if this abnormality is in the periphery of the lung, then it would represent a lung abscess. There is severe emphysema. No evidence of pulmonary embolus. No evidence of aortic dissection. IMPRESSION: Empyema versus lung abscess in the lateral right thorax. Severe emphysema. TECHNICAL DOCUMENTATION: Quality ID # 436: Final reports with documentation of one or more dose reduction techniques (e.g., Automated exposure control, adjustment of the mA and/or kV according to patient size, use of iterative reconstruction technique) copyright 2010 [email or web address]- All Rights Reserved
[2019-03-24] MEDS ORDERED: CLINDAMYCIN 300 MG/D5W RTU 300 MG/50 ML RTUPB IV ONE (03:14)
[2019-03-24] MEDS ORDERED: GLUCAGON,HUMAN RECOMB 1 MG INJ IM PRN (03:27)
[2019-03-24] MEDS ORDERED: DEXTROSE 40% GEL 15 GM TUBE PO PRN ×2 (03:27)
[2019-03-24] MEDS ORDERED: IPRATROPIUM/ALBUTEROL 0.5-2.5 MG/3 ML AMPUL NEB PRN (03:27)
[2019-03-24] MEDS ORDERED: GUAIFENESIN SYRP 200 MG/10 ML UDC PO PRN (03:27)
[2019-03-24] MEDS ORDERED: DEXTROSE 50%-WATER 25 GM/50 ML DISP.SYRIN IV PRN ×2 (03:27)
--- NOTE | 2019-03-24 03:29 | ER Document Report ---
ED General - General Chief Complaint: Shortness Of Breath Stated Complaint: RIGHT RIB PAIN,FEELING HOT Time Seen by Provider: 03/23/19 23:03 Primary Care Provider: BREANNE GARCÍA FNP [Primary Care Provider] - Follow up as needed Notes: Patient is a 68-year-old male who presents with complaint of pain in his right lower lung. Says worse with coughing or taking deep breath. He said this started earlier yesterday. He also notes that he was sweating and sometimes having chills. He did not check his temp at home. He has a history of emphysema. Is not currently seeing a splicing technician. He is a former smoker. He did have a pneumothorax back in the 80s. No lung surgery since then. No other complaints at this time. TRAVEL OUTSIDE OF THE [place] IN LAST 30 DAYS: No - Related Data Allergies/Adverse Reactions: No Known Allergies Allergy (Verified 02/21/19 10:59) Past Medical History - Social History Smoking Status: Former Smoker Chew tobacco use (# tins/day): No Frequency of alcohol use: None Drug Abuse: None Family History: Reviewed & Not Pertinent Patient has suicidal ideation: No Patient has homicidal ideation: No - Past Medical History Cardiac Medical History: Denies: Hx Coronary Artery Disease, Hx Heart Attack, Hx Hypertension Pulmonary Medical History: Denies: Hx Asthma, Hx Bronchitis, Hx COPD, Hx Pneumonia, Hx Sleep Apnea Neurological Medical History: Denies: Hx Cerebrovascular Accident, Hx Seizures Endocrine Medical History: Reports: Hx Diabetes Mellitus Type 2. Denies: Hx Hyperthyroidism, Hx Hypothyroidism Renal/ Medical History: Reports: Hx Benign Prostatic Hyperplasia. Denies: Hx End Stage Renal Disease, Hx Kidney Stones, Hx Peritoneal Dialysis GI Medical History: Denies: Hx Gastroesophageal Reflux Disease Musculoskeletal Medical History: Reports Hx Arthritis - Shoulder BILAT, Denies Hx Fibromyalgia, Denies Hx Muscular Dystrophy Psychiatric Medical History: Denies: Hx Depression, Hx Post Traumatic Stress Disorder Traumatic Medical History: Reports: Hx Fractures - collarbones, bilateral; finger; 3 ribs; rosanne ankles Past Surgical History: Reports: Hx Orthopedic Surgery - right rotator cuff repair. Denies: Hx Appendectomy, Hx Bowel Surgery, Hx Cholecystectomy, Hx Coronary Artery Bypass Graft, Hx Gastric Bypass Surgery, Hx Herniorrhaphy, Hx Pacemaker, Hx Tonsillectomy - Immunizations Hx Diphtheria, Pertussis, Tetanus Vaccination: Yes Hx Pneumococcal Vaccination: 12/06/18 Review of Systems - Review of Systems Notes: My Normal Review Basic REVIEW OF SYSTEMS: CONSTITUTIONAL : Denies fever, chills, or sweats. Denies recent illness. EENT: Denies eye, ear, throat, or mouth pain or symptoms. Denies nasal or sinus congestion. CARDIOVASCULAR: Denies chest pain. RESPIRATORY: Denies cough, cold, or chest congestion. Denies shortness of breath, difficulty breathing, or wheezing. GASTROINTESTINAL: Denies abdominal pain. Denies nausea, vomiting, or diarrhea. MUSCULOSKELETAL: Denies neck or back pain or joint pain or swelling. SKIN: Denies rash or skin lesions. HEMATOLOGIC : Denies easy bruising or bleeding. NEUROLOGICAL: Denies altered mental status or loss of consciousness. Denies headache. Denies weakness or paralysis or loss of use of either side. Denies p roblems with gait or speech. Denies sensory or motor loss. ALL OTHER SYSTEMS REVIEWED AND NEGATIVE. Physical Exam - Vital signs Vitals: Temp Pulse Resp BP Pulse Ox 100.5 F H 114 H 20 128/79 H 94 03/23/19 22:45 03/23/19 22:45 03/23/19 22:45 03/23/19 22:45 03/23/19 22:45 Course - Re-evaluation Re-evalutation: 03/24/19 03:[address] scan shows empyema versus abscess. I usually try to talk with the splicing technician on-call, Dr. Cortes. We initially did not get call back and therefore called the hospitalist. Spoke with Dr. Olvera who says that he would need pulmonology's input for accepting the patient for admission. I did eventua lly get in touch with Dr. Cortes who requested chest tube. I informed him that I do not feel comfortable with the chest tube as the area is very small and the patient has large lung bullae and therefore I feel that this would lead to a worse outcome. He said that I should speak with general surgery with recommendations about what to go with further. I did speak with Dr. Joshua Cao, general surgeon, who says that the empyema versus abscess is too small for a chest tube and that this patient would have a worse outcome because of air leak if we did try place the chest tube. He said appropriate treatment would be CT-guided needle drainage. He said this can be done here and that the surgical team would be happy to follow along with this care plan. I called back Dr. Olvera with recommendations and agrees to evaluate the patient for admission. Dictation of this chart was performed using voice recognition software; therefore, there may be some unintended grammatical errors. - Vital Signs Vital signs: Temp Pulse Resp BP Pulse Ox 100.3 F 114 H 20 128/79 H 94 03/24/19 01:12 03/23/19 22:45 03/23/19 22:45 03/23/19 22:45 03/23/19 22:45 - Laboratory Result Diagrams: 03/23/19 23:40 03/23/19 23:40 Laboratory results interpreted by me: 03/23/19 03/23/19 03/23/19 23:40 23:40 23:40 WBC 14.1 H RDW 14.1 H Seg Neutrophils % 87.6 H Lymphocytes % 5.6 L Absolute Neutrophils 12.3 H Carbon Dioxide 21 L BUN 25 H Creatinine 1.37 H Est GFR (Non-Af Amer) 52 L Glucose 144 H Urine Blood SMALL H Discharge - Discharge Clinical Impression: Empyema Condition: Stable Disposition: ADMITTED INPATIENT Admitting Provider: Wade (Hospitalist) Unit Admitted: Telemetry Referrals: BREANNE AGRCÍA FNP [Primary Care Provider] - Follow up as needed
[2019-03-24] MEDS ORDERED: VANCOMYCIN HCL 0 MG in DEXTROSE 5%-WATER 250 ML IV NR (03:30)
[2019-03-24] MEDS ORDERED: PIPERACILLIN/TAZOBACTAM 4.5 GM VIAL IV PRN (03:34)
[2019-03-24] MEDS ORDERED: VANCOMYCIN HCL INJ 1000 MG VIAL IV PRN (03:36)
[2019-03-24 03:40] LABS: INTERNATIONAL RATION (INR) 0.95; PROTHROMBIN TIME 12.7 SEC (11.4-15.4)
[2019-03-24 03:41] LABS: PARTIAL THROMBOPLASTIN TIME 27.1 SEC (23.5-35.8)
[2019-03-24] MEDS ORDERED: VANCOMYCIN HCL 1,000 MG in DEXTROSE 5%-WATER 250 ML IV ONE (04:00)
--- NOTE | 2019-03-24 04:44 | PDOC H&P ---
History of Present Illness Admission Date/PCP: 03/24/19 03:38 LELA SHARPE Patient complains of: Fever and right-sided chest pain History of Present Illness: DAI MARSH is a 68 year old male with a past medical history of diabetes, CKD 2, emphysema with remote pneumothorax. He presents with 24 hours of fever and right-sided chest pain which is sharp in nature exacerbated by deep breathing and movement. In the emergency room is found to have leukocytosis, a right sided peripheral abscess with associated empyema. Pulmonology is consulted, he started on empiric antibiotics and referred to the hospitalist for admission. He admits to recent aspiration or poor dentition. As a child he had several episodes of severe pneumonia. Patient is a [id number] history discontinuing 7 years ago. His father of coal mining silicosis. 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 Past Medical History Cardiac Medical History: Denies: Coronary Artery Disease, Myocardial Infarction, Hypertension Pulmonary Medical History: Denies: Asthma, Bronchitis, Chronic Obstructive Pulmonary Disease (COPD), Pn eumonia, Sleep Apnea Neurological Medical History: Denies: Seizures Endocrine Medical History: Reports: Diabetes Mellitus Type 2 Denies: Hyperthyroidism, Hypothyroidism Renal/ Medical History: Reports: Chronic Kidney Disease Denies: End Stage Renal Disease GI Medical History: Denies: Gastroesophageal Reflux Disease Musculoskeltal Medical History: Reports: Arthritis - Shoulder BILAT Denies: Fibromyalgia Psychiatric Medical History: Denies: Depression, Post Traumatic Stress Disorder Hematology: Denies: Anemia Past Surgical History Past Surgical History: Reports: Orthopedic Surgery - right rotator cuff repair Denies: Appendectomy, Cholecystectomy, Coronary Artery Bypass Graft, Gastric Bypass Surgery, Herniorrhaphy, Pacemaker, Tonsillectomy Social History Information Source: Patient, [facility] Records Lives with: Family Smoking Status: Former Smoker Frequency of Alcohol Use: None Hx Recreational Drug Use: No Hx Prescription Drug Abuse: No - Advance Directive Resuscitation Status: Full Code Family History Family History: Other - Silicosis Parental Family History Reviewed: Yes Children Family History Reviewed: Yes Sibling(s) Family History Reviewed.: Yes Medication/Allergy Home Medications: Multivitamin [Multiple Vitamins] 1 tab PO DAILY 02/17/18 Metformin HCl 500 mg PO BID 04/15/18 Allergies/Adverse Reactions: No Known Allergies Allergy (Verified 02/21/19 10:59) Review of Systems Constitutional: ABSENT: chills, fever(s), headache(s), weight gain, weight loss Eyes: ABSENT: visual disturbances Ears: ABSENT: hearing changes Cardiovascular: ABSENT: chest pain, dyspnea on exertion, edema, orthropnea, palpitations Respiratory: ABSENT: cough, hemoptysis Gastrointestinal: ABSENT: abdominal pain, constipation, diarrhea, hematemesis, hematochezia, nausea, vomiting Genitourinary: ABSENT: dysuria, hematuria Musculoskeletal: ABSENT: joint swelling Integumentary: ABSENT: rash, wounds Neurological: ABSENT: abnormal gait, abnormal speech, confusion, dizziness, focal weakness, syncope Psychiatric: ABSENT: anxiety, depression, homidical ideation, suicidal ideation Endocrine: ABSENT: cold intolerance, heat intolerance, polydipsia, polyuria Hematologic/Lymphatic: ABSENT: easy bleeding, easy bruising Physical Exam Vital Signs: Temp Pulse Resp BP Pulse Ox 100.3 F 114 H 20 128/79 H 94 03/24/19 01:12 03/23/19 22:45 03/23/19 22:45 03/23/19 22:45 03/23/19 22:45 Intake & Output 03/22/19 03/23/19 03/24/19 11:59 11:59 11:59 Intake Total 500 Balance 500 Weight 91.3 kg General appearance: PRESENT: cooperative, mild distress, thin. ABSENT: disheveled Head exam: PRESENT: atraumatic, normocephalic Eye exam: PRESENT: conjunctiva pink, EOMI, PERRLA. ABSENT: scleral icterus Ear exam: PRESENT: normal external ear exam Mouth exam: PRESENT: moist, tongue midline Neck exam: ABSENT: carotid bruit, JVD, lymphadenopathy, thyromegaly, tracheal deviation Respiratory exam: PRESENT: accessory muscle use, crackles, prolonged expiratory phas, retraction. ABSENT: rhonchi Cardiovascular exam: PRESENT: RRR. ABSENT: diastolic murmur, rubs, systolic murmur Pulses: PRESENT: normal dorsalis pedis pul Vascular exam: PRESENT: normal capillary refill GI/Abdominal exam: PRESENT: normal bowel sounds, soft. ABSENT: distended, guarding, mass, organolmegaly, rebound, tenderness Rectal exam: PRESENT: deferred Extremities exam: PRESENT: full ROM. ABSENT: calf tenderness, clubbing, pedal edema Neurological exam: PRESENT: alert, awake, oriented to person, oriented to place, oriented to time, oriented to situation, CN II-XII grossly intact. ABSENT: motor sensory deficit Psychiatric exam: PRESENT: appropriate affect, normal mood. ABSENT: homicidal ideation, suicidal ideation Skin exam: PRESENT: dry, intact, warm. ABSENT: cyanosis, rash Results Laboratory Results: 03/23/19 23:40 03/23/19 23:40 03/23/19 03/23/19 03/23/19 23:40 23:40 23:40 WBC 14.1 H RBC 4.93 Hgb 15.0 Hct 44.2 MCV 90 MCH 30.4 MCHC 33.9 RDW 14.1 H Plt Count 166 Seg Neutrophils % 87.6 H Lymphocytes % 5.6 L Monocytes % 6.1 Eosinophils % 0.2 Basophils % 0.5 Absolute Neutrophils 12.3 H Absolute Lymphocytes 0.8 Absolute Monocytes 0.9 Absolute Eosinophils 0.0 Absolute Basophils 0.1 Sodium 139.9 Potassium 4.2 Chloride 106 Carbon Dioxide 21 L Anion Gap 13 BUN 25 H Creatinine 1.37 H Est GFR ( Amer) > 60 Est GFR (Non-Af Amer) 52 L Glucose 144 H Calcium 9.8 Total Bilirubin 0.9 AST 20 ALT 24 Alkaline Phosphatase 70 Total Protein 7.6 Albumin 4.6 Lipase 163.3 Urine Color YELLOW Urine Appearance CLEAR Urine pH 5.0 Ur Specific [place] 1.023 Urine Protein NEGATIVE Urine Glucose (UA) NEGATIVE Urine Ketones NEGATIVE Urine Blood SMALL H Urine Nitrite NEGATIVE Ur Leukocyte Esterase NEGATIVE Urine WBC (Auto) 1 Urine RBC (Auto) 1 03/23/19 23:40 Troponin I < 0.012 Impressions: Chest X-Ray 03/23/19 00:00 IMPRESSION: Possible right-sided empyema. A CT scan of the chest might prove helpful for further evaluation. copyright 2010 [employer]- All Rights Reserved Chest/Abdomen CTA 03/24/19 01:22 IMPRESSION: Empyema versus lung abscess in the lateral right thorax. Severe emphysema. TECHNICAL DOCUMENTATION: Quality ID # 436: Final reports with documentation of one or more dose reduction techniques (e.g., Automated exposure control, adjustment of the mA and/or kV according to patient size, use of iterative reconstruction technique) copyright 2011 [employer]- All Rights Reserved Assessment and Plan - Diagnosis (1) Lung abscess Is this a current diagnosis for this admission?: Yes Plan: Empiric antibiotics initiated, follow-up pulmonology, interventional radiology consult. (2) Emphysema of lung Is this a current diagnosis for this admission?: Yes Plan: Incentive spirometry, flutter valve, supplemental oxygen (3) CKD (chronic kidney disease) Is this a current diagnosis for this admission?: Yes Plan: At baseline, avoid nephrotoxic meds and doses, follow-up chemistry (4) Empyema Is this a current diagnosis for this admission?: Yes Plan: Follow-up pulmonology consult, thoracentesis versus chest tube. - Time Time Spent with patient: 35 or more minutes - Inpatient Certification Medical Necessity: Need Close Monitoring Due to Risk of Patient Decompensation
[2019-03-24] MEDS: HEPARIN SOD (PORCINE) 5,000 UNIT/ML 1 ML VIAL SUBCUT SCH ×3 (05:49→21:18)
[2019-03-24] MEDS ORDERED: PIPERACILLIN SODIUM/TAZOBACTAM 4.5 GM in NORMAL SALINE 100 ML IV SCH (06:00)
[2019-03-24] MEDS ORDERED: PIPERACILLIN/TAZOBACTAM 4.5 GM VIAL IV ONE (06:01)
--- NOTE | 2019-03-24 07:27 | PDOC CONSULTATION ---
Consultation Consult Date: 03/24/19 Provider Consulted: SURGICAL SURGICALIST MD Consult reason:: "lung infection" History of Present Illness Admission Date/PCP: 03/24/19 03:38 LELA SHARPE Patient complains of: chest pain, cough History of Present Illness: DAI MARSH is a 68 year old diabetic male with a 3-week history of intermittent chest pain. Yesterday, his chest pain became severe. He also reported a cough with intermittent fevers and chills. The patient has difficulty with taking deep breaths. He denies any exposure to farm animals, chickens, pigs, exposure to mold or construction sites. He presented to the emergency department where an x-ray was performed showing an abnormality in the right lung. A CT scan was then performed suggestive of infection with possible abscess formation. The patient denies abdominal pain, headache, dizziness, orth ostasis, significant shortness of breath, weakness, paresthesias, blurry vision. The patient does not know what his A1c is. He does not know what his last blood sugar was. He reports he checks it "sometimes". Past Medical History Cardiac Medical History: Denies: Coronary Artery Disease, Myocardial Infarction, Hypertension Pulmonary Medical History: Denies: Asthma, Bronchitis, Chronic Obstructive Pulmonary Disease (COPD), Pn eumonia, Sleep Apnea Neurological Medical History: Denies: Seizures Endocrine Medical History: Reports: Diabetes Mellitus Type 2 Denies: Hyperthyroidism, Hypothyroidism Renal/ Medical History: Reports: Chronic Kidney Disease Denies: End Stage Renal Disease GI Medical History: Denies: Gastroesophageal Reflux Disease Musculoskeltal Medical History: Reports: Arthritis - Shoulder BILAT Denies: Fibromyalgia Psychiatric Medical History: Denies: Depression, Post Traumatic Stress Disorder Hematology: Denies: Anemia Past Surgical History Past Surgical History: Reports: Orthopedic Surgery - right rotator cuff repair Denies: Appendectomy, Cholecystectomy, Coronary Artery Bypass Graft, Gastric Bypass Surgery, Herniorrhaphy, Pacemaker, Tonsillectomy Social History Lives with: Family Smoking Status: Former Smoker Frequency of Alcohol Use: None Hx Recreational Drug Use: No Hx Prescription Drug Abuse: No - Advance Directive Resuscitation Status: Full Code Family History Family History: Other - Silicosis Parental Family History Reviewed: Yes Children Family History Reviewed: Yes Sibling(s) Family History Reviewed.: Yes Medication/Allergy Home Medications: Multivitamin [Multiple Vitamins] 1 tab PO DAILY 06/13/18 Metformin HCl 500 mg PO BID 04/15/18 Allergies/Adverse Reactions: amoxicillin Allergy (Intermediate, Verified 03/24/19 06:58) Hives Review of Systems Constitutional: PRESENT: chills, fatigue, fever(s). ABSENT: anorexia, weakness Eyes: ABSENT: visual disturbances Ears: ABSENT: hearing changes Nose, Mouth, and Throat: ABSENT: sore throat Cardiovascular: PRESENT: chest pain Respiratory: PRESENT: cough, dyspnea - mild Gastrointestinal: ABSENT: abdominal pain, constipation, heartburn, hematemesis, hematochezia Genitourinary: ABSENT: dysuria Musculoskeletal: ABSENT: back pain Integumentary: ABSENT: pruritus, rash Neurological: ABSENT: confusion, convulsions, dizziness Psychiatric: ABSENT: anxiety, depression Endocrine: ABSENT: cold intolerance, heat intolerance Hematologic/Lymphatic: ABSENT: easy bleeding, easy bruising Physical Exam Vital Signs: Temp Pulse Resp BP Pulse Ox 98.2 F 67 18 119/58 L 96 03/24/19 05:36 03/24/19 05:36 03/24/19 05:36 03/24/19 05:36 03/24/19 05:36 Intake & Output 03/22/19 03/23/19 03/24/19 06:59 06:59 06:59 Intake Total 550 Balance 550 Weight 91.3 kg General appearance: PRESENT: no acute distress, cooperative Head exam: PRESENT: atraumatic, normocephalic Eye exam: PRESENT: EOMI, PERRLA. ABSENT: scleral icterus Mouth exam: PRESENT: moist, neck supple Neck exam: ABSENT: meningismus, tenderness, thyromegaly, tracheal deviation Respiratory exam: PRESENT: chest wall tenderness - right anterior chest Cardiovascular exam: PRESENT: RRR Pulses: PRESENT: normal radial pulses Vascular exam: PRESENT: normal capillary refill GI/Abdominal exam: PRESENT: soft. ABSENT: distended, guarding, rebound, tenderness Rectal exam: PRESENT: deferred Extremities exam: ABSENT: clubbing Musculoskeletal exam: ABSENT: deformity Neurological exam: PRESENT: alert, awake, oriented to person, oriented to place, oriented to time, oriented to situation, CN II-XII grossly intact Psychiatric exam: ABSENT: agitated, anxious, depressed Skin exam: ABSENT: cyanosis, erythema, jaundice Results Laboratory Results: 03/23/19 23:40 03/23/19 23:40 03/23/19 03/23/1919 23:40 23:40 23:40 WBC 14.1 H RBC 4.93 Hgb 15.0 Hct 44.2 MCV 90 MCH 30.4 MCHC 33.9 RDW 14.1 H Plt Count 166 Seg Neutrophils % 87.6 H Lymphocytes % 5.6 L Monocytes % 6.1 Eosinophils % 0.2 Basophils % 0.5 Absolute Neutrophils 12.3 H Absolute Lymphocytes 0.8 Absolute Monocytes 0.9 Absolute Eosinophils 0.0 Absolute Basophils 0.1 Sodium 139.9 Potassium 4.2 Chloride 106 Carbon Dioxide 21 L Anion Gap 13 BUN 25 H Creatinine 1.37 H Est GFR ( Amer) > 60 Est GFR (Non-Af Amer) 52 L Glucose 144 H Calcium 9.8 Total Bilirubin 0.9 AST 20 ALT 24 Alkaline Phosphatase 70 Total Protein 7.6 Albumin 4.6 Lipase 163.3 Urine Color YELLOW Urine Appearance CLEAR Urine pH 5.0 Ur Specific Perrin 1.023 Urine Protein NEGATIVE Urine Glucose (UA) NEGATIVE Urine Ketones NEGATIVE Urine Blood SMALL H Urine Nitrite NEGATIVE Ur Leukocyte Esterase NEGATIVE Urine WBC (Auto) 1 Urine RBC (Auto) 1 03/23/19 23:40 Troponin I < 0.012 Impressions: Chest X-Ray 03/23/19 00:00 IMPRESSION: Possible right-sided empyema. A CT scan of the chest might prove helpful for further evaluation. copyright 2010 [employer]- All Rights Reserved Chest/Abdomen CTA 03/24/19 01:22 IMPRESSION: Empyema versus lung abscess in the lateral right thorax. Severe emphysema. TECHNICAL DOCUMENTATION: Quality ID # 436: Final reports with documentation of one or more dose reduction techniques (e.g., Automated exposure control, adjustment of the mA and/or kV according to patient size, use of iterative reconstruction technique) copyright 2011 [employer]- All Rights Reserved Assessment & Plan - Diagnosis (1) Pneumonia of right lung due to infectious organism Qualifiers: Lung location: middle lobe of lung Qualified Code(s): J18.1 - Lobar pneumonia, unspecified organism Is this a current diagnosis for this admission?: Yes - Plan Summary Plan Summary: This is a 68-year-old male with a 3-week history of intermittent chest wall pain. The patient reports severe pain over the last 24 hours. He reports fevers and chills. He also reports pain with deep inspiration and mild shortness of breath. He is a diabetic. I have reviewed the patient's CT scan images and report. I do not see any overt evidence of empyema. Patient does have a tiny amount of fluid in an area of thickened lung, situated around a large bulla. The area is so small, I do not believe thoracotomy is warranted. Tube thoracostomy would likely be ineffective. At this time, I would recommend intravenous antibiotics and repeat imaging. If aspiration is required, image guided aspiration/biopsy would be the procedure of choice. We will continue to follow this patient with you. No surgery is planned at this time.
[2019-03-24] MEDS: IPRATROPIUM/ALBUTEROL 0.5-2.5 MG/3 ML AMPUL NEB SCH ×3 (08:11→19:34)
--- NOTE | 2019-03-24 08:58 | EKG REPORT ---
SEVERITY:- ABNORMAL ECG - SINUS RHYTHM LEFT ANTERIOR FASCICULAR BLOCK CONSIDER ANTEROSEPTAL INFARCT : Confirmed by: Ramo Martinez MD 24-Mar-2019 08:57:20
[2019-03-24] MEDS: INSULIN LISPRO 100 UNIT/ML 3 ML VIAL SUBCUT SCH ×3 (09:02→16:34)
[2019-03-24] MEDS: PIPERACILLIN SODIUM/TAZOBACTAM 4.5 GM in NORMAL SALINE 100 ML IV SCH ×3 (09:21→21:18)
[2019-03-24] MEDS: VANCOMYCIN HCL 1,250 MG in DEXTROSE 5%-WATER 250 ML IV SCH ×2 (14:09→23:07)
[2019-03-24] MEDS: ACETAMINOPHEN 325 MG TABLET PO PRN (14:14)
[2019-03-25] MEDS: IPRATROPIUM/ALBUTEROL 0.5-2.5 MG/3 ML AMPUL NEB SCH ×4 (02:12→20:55)
[2019-03-25] MEDS: PIPERACILLIN SODIUM/TAZOBACTAM 4.5 GM in NORMAL SALINE 100 ML IV SCH ×4 (03:26→21:22)
[2019-03-25] MEDS: HEPARIN SOD (PORCINE) 5,000 UNIT/ML 1 ML VIAL SUBCUT SCH ×3 (05:45→21:29)
[2019-03-25] MEDS: VANCOMYCIN HCL 1,250 MG in DEXTROSE 5%-WATER 250 ML IV SCH (05:49)
[2019-03-25] MEDS: ACETAMINOPHEN 325 MG TABLET PO PRN ×3 (05:53→23:21)
[2019-03-25 07:32] LABS: ANION GAP 10 (5-19); BLOOD UREA NITROGEN 22 mg/dL (7-20); CALCIUM 8.6 mg/dL (8.4-10.2); CARBON DIOXIDE 21 mmol/L (22-30); CHLORIDE 104 mmol/L (98-107); GLUCOSE 172 mg/dL (75-110); POTASSIUM 3.8 mmol/L (3.6-5.0); SODIUM 135.2 mmol/L (137-145)
[2019-03-25 07:33] LABS: VANCOMYCIN,TROUGH 16.1 ug/mL (5.0-20.0)
[2019-03-25] MEDS ORDERED: DEXTROSE 50%-WATER 25 GM/50 ML DISP.SYRIN IV PRN ×2 (08:16)
[2019-03-25] MEDS ORDERED: DEXTROSE 40% GEL 15 GM TUBE PO PRN ×2 (08:16)
[2019-03-25] MEDS ORDERED: GLUCAGON,HUMAN RECOMB 1 MG INJ IM PRN (08:16)
[2019-03-25 08:40] LABS: ABSOLUTE BASOPHILS # (AUTO) 0.1 10^3/uL (0.0-0.2); ABSOLUTE LYMPHOCYTES (AUTO) 1.4 10^3/uL (0.5-4.7); ABSOLUTE MONOCYTES (AUTO) 0.9 10^3/uL (0.1-1.4); ABSOLUTE NEUT (AUTO) 13.2 10^3/uL (1.7-8.2); BASOPHILS % (AUTO) 0.4 % (0-2); HEMATOCRIT 40.1 % (37.9-51.0); HEMOGLOBIN 13.7 g/dL (13.5-17.0); LYMPHOCYTES % (AUTO) 8.7 % (13-45); MEAN CORPUSCULAR HEMOGLOBIN 30.7 pg (27.0-33.4); MEAN CORPUSCULAR HGB CONC 34.2 g/dL (32.0-36.0); MEAN CORPUSCULAR VOLUME 90 fl (80-97); MONOCYTES % (AUTO) 5.7 % (3-13); PLATELET COUNT 115 10^3/uL (150-450); RED BLOOD COUNT 4.47 10^6/uL (4.35-5.55); RED CELL DISTRIBUTION WIDTH 13.7 % (11.5-14.0); SEGMENTED NEUTROPHILS % (AUTO) 85.2 % (42-78); TOTAL CELLS COUNTED % (AUTO) 100 %; WHITE BLOOD COUNT 15.5 10^3/uL (4.0-10.5)
[2019-03-25] MEDS: INSULIN LISPRO 100 UNIT/ML 3 ML VIAL SUBCUT SCH ×3 (09:47→17:11)
--- NOTE | 2019-03-25 14:38 | PDOC PROGRESS REPORT ---
Subjective Progress Note for:: 03/25/19 Subjective:: DAI MARSH is a 68 year old male with a past medical history of diabetes, CKD 2, emphysema with remote pneumothorax. He presents with 24 hours of fever and right-sided chest pain which is sharp in nature exacerbated by deep breathing and movement. In the emergency room is found to have leukocytosis, a right sided peripheral abscess with associated empyema. Pulmonology is consulted, he started on empiric antibiotics and referred to the hospitalist for admission. He admits to recent aspiration or poor dentition. As a child he had several episodes of severe pneumonia. Patient is a [id number] history discontinuing 7 years ago. His father of coal mining silicosis. 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 03/25/2019. No acute events overnight. Patient is complaining of on and off mild pleuritic chest pain otherwise p.o. tolerant, ambulatory, having normal bowel and bladder movements, denies any fever, chills, nausea, vomiting, diarrhea, constipation or any urinary symptoms. Reason For Visit: LUNG ABSCESS,PNEUMONIA Physical Exam Vital Signs: Temp Pulse Resp BP Pulse Ox 98.8 F 78 18 119/53 L 92 03/25/19 12:25 03/25/19 14:05 03/25/19 14:05 03/25/19 12:25 03/25/19 14:05 Intake & Output 03/24/19 03/25/19 03/26/19 06:59 06:59 06:59 Intake Total 550 1810 100 Output Total 400 Balance 550 1410 100 Weight 91.3 kg 89.8 kg General appearance: PRESENT: no acute distress, well-developed, well-nourished Head exam: PRESENT: atraumatic, normocephalic Eye exam: PRESENT: conjunctiva pink, EOMI, PERRLA. ABSENT: scleral icterus Ear exam: PRESENT: normal external ear exam Mouth exam: PRESENT: moist, tongue midline Neck exam: ABSENT: carotid bruit, JVD, lymphadenopathy, thyromegaly Respiratory exam: PRESENT: clear to auscultation rosanne. ABSENT: rales, rhonchi, wheezes Cardiovascular exam: PRESENT: RRR. ABSENT: diastolic murmur, rubs, systolic murmur Pulses: PRESENT: normal dorsalis pedis pul Vascular exam: PRESENT: normal capillary refill GI/Abdominal exam: PRESENT: normal bowel sounds, soft. ABSENT: distended, guarding, mass, organolmegaly, rebound, tenderness Rectal exam: PRESENT: deferred Extremities exam: PRESENT: full ROM. ABSENT: calf tenderness, clubbing, pedal edema Neurological exam: PRESENT: alert, awake, oriented to person, oriented to place, oriented to time, oriented to situation, CN II-XII grossly intact. ABSENT: motor sensory deficit Psychiatric exam: PRESENT: appropriate affect, normal mood. ABSENT: homicidal i deation, suicidal ideation Skin exam: PRESENT: dry, intact, warm. ABSENT: cyanosis, rash Results Laboratory Results: 03/25/19 08:29 03/25/19 05:42 03/25/19 03/25/19 03/25/19 05:42 05:42 08:29 WBC Cancelled 15.5 H RBC Cancelled 4.47 Hgb Cancelled 13.7 Hct Cancelled 40.1 MCV Cancelled 90 MCH Cancelled 30.7 MCHC Cancelled 34.2 RDW Cancelled 13.7 Plt Count Cancelled 115 L Seg Neutrophils % Cancelled 85.2 H Lymphocytes % Cancelled 8.7 L Monocytes % Cancelled 5.7 Eosinophils % Cancelled 0.0 Basophils % Cancelled 0.4 Absolute Neutrophils Cancelled 13.2 H Absolute Lymphocytes Cancelled 1.4 Absolute Monocytes Cancelled 0.9 Absolute Eosinophils Cancelled 0.0 Absolute Basophils Cancelled 0.1 Sodium 135.2 L Potassium 3.8 Chloride 104 Carbon Dioxide 21 L Anion Gap 10 BUN 22 H Creatinine 1.54 H Est GFR ( Amer) 55 L Est GFR (Non-Af Amer) 45 L Glucose 172 H Calcium 8.6 03/23/19 23:40 Troponin I < 0.012 Impressions: Chest X-Ray 03/23/19 00:00 IMPRESSION: Possible right-sided empyema. A CT scan of the chest might prove helpful for further evaluation. copyright 2011 [employer]- All Rights Reserved Chest/Abdomen CTA 03/24/19 01:22 IMPRESSION: Empyema versus lung abscess in the lateral right thorax. Severe emphysema. TECHNICAL DOCUMENTATION: Quality ID # 436: Final reports with documentation of one or more dose reduction techniques (e.g., Automated exposure control, adjustment of the mA and/or kV according to patient size, use of iterative reconstruction technique) copyright 2010 [employer]- All Rights Reserved Assessment and Plan - Diagnosis (1) Lung abscess Qualifiers: Laterality: right Lung location: lower lobe of lung Is this a current diagnosis for this admission?: Yes Plan: Unknown etiology. Surgery consulted but recommendation is medical management at this point. No drainage planned. Day 3 IV antibiotics. Day 3 IV Zosyn. Day 3 IV vancomycin. Cultures no growth so far. Infectious disease specialist consulted. Pending recommendation. Continue empiric IV antibiotics. Follow-up cultures. (2) CKD (chronic kidney disease) Is this a current diagnosis for this admission?: Yes Plan: Baseline 1.4. Mild elevation of creatinine. Likely due to IV antibiotics. Electrolytes WNL. Nonoliguric. Monitor glucose and volume status, avoid nephrotoxic agents. BMP tomorrow. (3) Emphysema of lung Is this a current diagnosis for this admission?: Yes Plan: Former heavy smoker. Continue DuoNeb's, supplemental oxygen, PRN BiPAP, incentive spirometry, flutter valve, supplemental oxygen. Pending pulmonology consult. (4) Empyema Is this a current diagnosis for this admission?: Yes Plan: Per #1.
--- NOTE | 2019-03-25 16:57 | Progress Note ---
Provider Note Provider Note: ID Consult Note Asked to review patient's chart. Pt not seen or examined. Pt is a 68 year old man who presented with pleuritic chest pain and fever yesterday 03/24/19 and was admitted for further workup. He has DM, CKD, emphysema and remote PTX. He is a former smoker. 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 In the ED, the patient reported malaise and cough that lasted weeks but was starting to improve. The chest wall pain has been intermittent for 3 weeks. Per H&P he "admits to recent aspiration or poor dentition." On presentation the patient had a temperature of 100.5 F and tachycardia. On exam the patient had R anterior chest wall tenderness and was noted to have on lung exam crackles, prolonged expiratory phase, and accessory muscle use initially. Since then he has been on 2L supplemental O2 without labored breathing, and O2 sats have been in the 90s. WBC count is 14-15. Chemistries include SCr 1.4-1.5. Blood cultures are negative x 24h. Sputum culture was sent and is pending. Empirically, vancomycin and IV Zosyn were started. The patient reports an allergy to amoxicillin of "hives." Chest imaging included CXR that showed a "possible right sided empyema." Per the radiologist reading "In retrospect, the prior study shows an ovoid lucency projecting over the lateral aspect of the right hemithorax." The previous study was in March 2018. CT scan of the chest was also performed that showed a thick walled lesion in the right lateral thorax, which the radiologist read as "...most likely in the pleural space, compatible with an empyema, however, if this abnormality is in the periphery of the lung, then it would represent a lung abscess." Surgery was consulted to see the patient and rendered the assessment that tube thoracostomy would likely be inffective and thoracotomy was not warranted as the area of fluid in the area of thickened lung was so small; no overt empyema was appreciated. Impression/Recommendations Pt has a thick walled R upper lobe cavitary lung lesion. - He has a subacute/chronic process with 3 weeks of pleuritic chest pain and weeks of cough per notes. - Appearance of lesion is not typical, but lung abscess is possible. Might have predisposing factors. Per H&P, pt "admits to recent aspiration or poor dentition." - Would follow up sputum culture results. If mixed joyce or oropharyngeal joyce, this is potentially compatible with aspiration. - If no MRSA from sputum culture, discontinue vancomycin. - Appearance of lesion is not typical for TB either but would inquire into risk factors for TB exposure (incarceration, family members with TB, any prior work in health care, travel to endemic countries such as [place]) if not already done. Consider airborne isolation pending 3 sputum smears for AFB and culture. Can induce sputum if not able to expectorate. Consider PPD placement (but alone it is not sufficient to r/o active TB). hx of "amoxicillin allergy" - The fact that the patient is tolerating Zosyn is curious in light of his re ported "hives" to amoxicillin. Both are penicillins, and I would have expected cross-reactivity if patient had true IgE mediated penicillin allergy. Suggest clarifying nature of the reported reaction and when it occured. Even IgE mediated reactions wane with time with around 80% of patients becoming tolerant after 10 years. Consider challenging the patient with a low dose of amoxicillin PO 250 mg in a monitored setting. - If this is indeed a bacterial lung abscess from aspiration with mixed oropharyngeal joyce, options include clindamycin, moxifloxacin or Augmentin for PO switch at discharge but more information is needed at present. Chandler Neff MD [facility] Infectious Diseases pager [phone]
--- NOTE | 2019-03-25 20:06 | PDOC PROGRESS REPORT ---
Subjective Progress Note for:: 03/25/19 Subjective:: breathing better Reason For Visit: LUNG ABSCESS,PNEUMONIA Physical Exam Vital Signs: Temp Pulse Resp BP Pulse Ox 99.2 F 73 16 115/59 L 92 03/25/19 19:40 03/25/19 19:40 03/25/19 19:40 03/25/19 19:40 03/25/19 19:40 Intake & Output 03/24/19 03/25/19 03/26/19 06:59 06:59 06:59 Intake Total 550 1810 100 Output Total 400 Balance 550 1410 100 Weight 91.3 kg 89.8 kg Exam: Looks more comfortable. Films reviewed with Radiologist and noted abscess vs empyema but hesitant to do any intervention because of multiple bullae bilateral. Suggested continued IV antibiotics and follow-up CT scan after 6 weeks to R/O any tumor. Just reviewed ID consult note. Results Laboratory Results: 03/25/19 08:29 03/25/19 05:42 03/25/19 03/25/19 03/25/19 05:42 05:42 08:29 WBC Cancelled 15.5 H RBC Cancelled 4.47 Hgb Cancelled 13.7 Hct Cancelled 40.1 MCV Cancelled 90 MCH Cancelled 30.7 MCHC Cancelled 34.2 RDW Cancelled 13.7 Plt Count Cancelled 115 L Seg Neutrophils % Cancelled 85.2 H Lymphocytes % Cancelled 8.7 L Monocytes % Cancelled 5.7 Eosinophils % Cancelled 0.0 Basophils % Cancelled 0.4 Absolute Neutrophils Cancelled 13.2 H Absolute Lymphocytes Cancelled 1.4 Absolute Monocytes Cancelled 0.9 Absolute Eosinophils Cancelled 0.0 Absolute Basophils Cancelled 0.1 Sodium 135.2 L Potassium 3.8 Chloride 104 Carbon Dioxide 21 L Anion Gap 10 BUN 22 H Creatinine 1.54 H Est GFR ( Amer) 55 L Est GFR (Non-Af Amer) 45 L Glucose 172 H Calcium 8.6 03/23/19 23:40 Troponin I < 0.012 Impressions: Chest X-Ray 03/23/19 00:00 IMPRESSION: Possible right-sided empyema. A CT scan of the chest might prove helpful for further evaluation. copyright 2010 [employer]- All Rights Reserved Chest/Abdomen CTA 03/24/19 01:22 IMPRESSION: Empyema versus lung abscess in the lateral right thorax. Severe emphysema. TECHNICAL DOCUMENTATION: Quality ID # [id number]: Final reports with documentation of one or more dose reduction techniques (e.g., Automated exposure control, adjustment of the mA and/or kV according to patient size, use of iterative reconstruction technique) copyright 2011 [employer]- All Rights Reserved Assessment & Plan - Diagnosis (1) Lung abscess Qualifiers: Laterality: right Lung location: lower lobe of lung Is this a current diagnosis for this admission?: Yes - Time Time Spent with patient: 15-24 minutes - Inpatient Certification Medical Necessity: Need for IV Antibiotics - Plan Summary Plan Summary: Continue IV antibiotics Noted ID and Radiologist recommendations. Will sign off. Call for questions
[2019-03-25] MEDS: INSULIN GLARGINE,HUM.REC.ANLOG 1,000 UNIT/10 ML VIAL SUBCUT SCH (21:22)
[2019-03-26] MEDS: IPRATROPIUM/ALBUTEROL 0.5-2.5 MG/3 ML AMPUL NEB SCH ×4 (01:59→20:18)
[2019-03-26] MEDS: PIPERACILLIN SODIUM/TAZOBACTAM 4.5 GM in NORMAL SALINE 100 ML IV SCH ×4 (03:14→20:35)
[2019-03-26] MEDS: ACETAMINOPHEN 325 MG TABLET PO PRN ×2 (03:58→16:15)
[2019-03-26] MEDS: HEPARIN SOD (PORCINE) 5,000 UNIT/ML 1 ML VIAL SUBCUT SCH ×3 (05:06→21:45)
[2019-03-26 05:33] LABS: ABSOLUTE BASOPHILS # (AUTO) 0.1 10^3/uL (0.0-0.2); ABSOLUTE LYMPHOCYTES (AUTO) 0.7 10^3/uL (0.5-4.7); ABSOLUTE MONOCYTES (AUTO) 0.7 10^3/uL (0.1-1.4); ABSOLUTE NEUT (AUTO) 9.4 10^3/uL (1.7-8.2); BASOPHILS % (AUTO) 0.5 % (0-2); EOSINOPHILS % (AUTO) 0.1 % (0-6); HEMATOCRIT 35.6 % (37.9-51.0); HEMOGLOBIN 12.4 g/dL (13.5-17.0); LYMPHOCYTES % (AUTO) 6.1 % (13-45); MEAN CORPUSCULAR HEMOGLOBIN 31.1 pg (27.0-33.4); MEAN CORPUSCULAR HGB CONC 34.7 g/dL (32.0-36.0); MEAN CORPUSCULAR VOLUME 90 fl (80-97); MONOCYTES % (AUTO) 6.5 % (3-13); PLATELET COUNT 104 10^3/uL (150-450); RED BLOOD COUNT 3.97 10^6/uL (4.35-5.55); RED CELL DISTRIBUTION WIDTH 13.4 % (11.5-14.0); SEGMENTED NEUTROPHILS % (AUTO) 86.8 % (42-78); TOTAL CELLS COUNTED % (AUTO) 100 %; WHITE BLOOD COUNT 10.9 10^3/uL (4.0-10.5)
[2019-03-26 05:53] LABS: ANION GAP 8 (5-19); BLOOD UREA NITROGEN 17 mg/dL (7-20); CALCIUM 8.4 mg/dL (8.4-10.2); CARBON DIOXIDE 23 mmol/L (22-30); CHLORIDE 105 mmol/L (98-107); GLUCOSE 168 mg/dL (75-110); POTASSIUM 3.8 mmol/L (3.6-5.0)
[2019-03-26] MEDS ORDERED: VANCOMYCIN HCL 1,500 MG in DEXTROSE 5%-WATER 250 ML IV SCH (08:00)
[2019-03-26] MEDS: INSULIN LISPRO 100 UNIT/ML 3 ML VIAL SUBCUT SCH ×3 (10:04→17:13)
--- NOTE | 2019-03-26 12:16 | PDOC PROGRESS REPORT ---
Subjective Progress Note for:: 03/26/19 Subjective:: DAI MARSH is a 68 year old male with a past medical history of diabetes, CKD 2, emphysema with remote pneumothorax. He presents with 24 hours of fever and right-sided chest pain which is sharp in nature exacerbated by deep breathing and movement. In the emergency room is found to have leukocytosis, a right sided peripheral abscess with associated empyema. Pulmonology is consulted, he started on empiric antibiotics and referred to the hospitalist for admission. He admits to recent aspiration or poor dentition. As a child he had several episodes of severe pneumonia. Patient is a [id number] history discontinuing 7 years ago. His father of coal mining silicosis. 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 03/25/2019. No acute events overnight. Patient is complaining of on and off mild pleuritic chest pain otherwise p.o. tolerant, ambulatory, having normal bowel and bladder movements, denies any fever, chills, nausea, vomiting, diarrhea, constipation or any urinary symptoms. 03/26/2019. No acute events overnight. Yesterday patient was febrile. Denies any chills, nausea, vomiting, diarrhea, constipation or any urinary symptoms. ID specialist consulted and suggesting AFP to rule out TB. Very localized hoarseness patient denies having been exposed to anybody with TB, recent foreign travel, visiting anybody at present, denies any night sweats or weight loss. Reason For Visit: LUNG ABSCESS,PNEUMONIA Physical Exam Vital Signs: Temp Pulse Resp BP Pulse Ox 99.4 F 76 20 127/66 H 20 L 03/26/19 11:00 03/26/19 11:00 03/26/19 11:00 03/26/19 11:00 03/26/19 11:00 Intake & Output 03/25/19 03/26/19 03/27/19 06:59 06:59 06:59 Intake Total 1810 1920 100 Output Total 400 Balance 1410 1920 100 Weight 89.8 kg 91.3 kg General appearance: PRESENT: no acute distress, well-developed, well-nourished Head exam: PRESENT: atraumatic, normocephalic Eye exam: PRESENT: conjunctiva pink, EOMI, PERRLA. ABSENT: scleral icterus Ear exam: PRESENT: normal external ear exam Mouth exam: PRESENT: moist, tongue midline Neck exam: ABSENT: carotid bruit, JVD, lymphadenopathy, thyromegaly Respiratory exam: PRESENT: clear to auscultation rosanne. ABSENT: rales, rhonchi, wheezes Cardiovascular exam: PRESENT: RRR. ABSENT: diastolic murmur, rubs, systolic murmur Pulses: PRESENT: normal dorsalis pedis pul Vascular exam: PRESENT: normal capillary refill GI/Abdominal exam: PRESENT: normal bowel sounds, soft. ABSENT: distended, guarding, mass, organolmegaly, rebound, tenderness Rectal exam: PRESENT: deferred Extremities exam: PRESENT: full ROM. ABSENT: calf tenderness, clubbing, pedal edema Neurological exam: PRESENT: alert, awake, oriented to person, oriented to place, oriented to time, oriented to situation, CN II-XII grossly intact. ABSENT: motor sensory deficit Psychiatric exam: PRESENT: appropriate affect, normal mood. ABSENT: homicidal ideation, suicidal ideation Skin exam: PRESENT: dry, intact, warm. ABSENT: cyanosis, rash Results Laboratory Results: 03/26/19 04:53 03/26/19 04:53 03/26/19 03/26/19 04:53 04:53 WBC 10.9 H RBC 3.97 L Hgb 12.4 L Hct 35.6 L MCV 90 MCH 31.1 MCHC 34.7 RDW 13.4 Plt Count 104 L Seg Neutrophils % 86.8 H Lymphocytes % 6.1 L Monocytes % 6.5 Eosinophils % 0.1 Basophils % 0.5 Absolute Neutrophils 9.4 H Absolute Lymphocytes 0.7 Absolute Monocytes 0.7 Absolute Eosinophils 0.0 Absolute Basophils 0.1 Sodium 136.0 L Potassium 3.8 Chloride 105 Carbon Dioxide 23 Anion Gap 8 BUN 17 Creatinine 1.34 H Est GFR ( Amer) > 60 Est GFR (Non-Af Amer) 53 L Glucose 168 H Calcium 8.4 03/23/19 23:40 Troponin I < 0.012 Impressions: Chest X-Ray 03/23/19 00:00 IMPRESSION: Possible right-sided empyema. A CT scan of the chest might prove helpful for further evaluation. copyright 2010 [employer]- All Rights Reserved Chest/Abdomen CTA 03/24/19 01:22 IMPRESSION: Empyema versus lung abscess in the lateral right thorax. Severe emphysema. TECHNICAL DOCUMENTATION: Quality ID # 436: Final reports with documentation of one or more dose reduction techniques (e.g., Automated exposure control, adjustment of the mA and/or kV according to patient size, use of iterative reconstruction technique) copyright 2011 [employer]- All Rights Reserved Assessment and Plan - Diagnosis (1) Lung abscess Qualifiers: Laterality: right Lung location: lower lobe of lung Is this a current diagnosis for this admission?: Yes Plan: Unknown etiology. Surgery consulted but recommendation is medical management at this point. No drainage planned. Day 4 IV antibiotics. Day 4 IV Zosyn. Received 3 days of IV vancomycin. DC as per ID recommendation. Cultures no growth so far. Infectious disease consulted. Recommendation is possibly sending patient home on either the clindamycin, moxifloxacin or Augmentin. Also recommending a fever rule out TB. Low likelihood of TB as patient denies having any exposure to any patient with TB, being in longterm or visiting any variant present, recent foreign travel, night sweats or weight loss. Will obtain AFP x3. Isolation. Pulmonology consulted. Pending recommendations. If AFB negative. Patient could be sent home on either Augmentin, moxifloxacin or clindamycin. Notes. On the EMR patient was reported to have allergies to amoxicillin penicillin however he has been receiving Zosyn with no problem however when when I checked with the patient and his who is at the bedside if he is allergic to penicillins they both denied that he was allergic to any medications includ ing penicillins. Continue empiric IV antibiotics. Follow-up cultures and AFB. (2) CKD (chronic kidney disease) Is this a current diagnosis for this admission?: Yes Plan: Baseline 1.4. Mild elevation of creatinine. Likely due to IV antibiotics. Electrolytes WNL. Nonoliguric. Monitor glucose and volume status, avoid nephrotoxic agents. BMP tomorrow. (3) Emphysema of lung Is this a current diagnosis for this admission?: Yes Plan: Former heavy smoker. Continue DuoNeb's, supplemental oxygen, PRN BiPAP, incentive spirometry, flutter valve, supplemental oxygen. Pulmonology consulted. Pending recommendation. (4) Empyema Is this a current diagnosis for this admission?: Yes Plan: Per #1.
[2019-03-26] MEDS: INSULIN GLARGINE,HUM.REC.ANLOG 1,000 UNIT/10 ML VIAL SUBCUT SCH (21:45)
[2019-03-27] MEDS: IPRATROPIUM/ALBUTEROL 0.5-2.5 MG/3 ML AMPUL NEB SCH ×4 (02:18→20:15)
[2019-03-27] MEDS: PIPERACILLIN SODIUM/TAZOBACTAM 4.5 GM in NORMAL SALINE 100 ML IV SCH ×4 (03:45→21:50)
[2019-03-27] MEDS: HEPARIN SOD (PORCINE) 5,000 UNIT/ML 1 ML VIAL SUBCUT SCH ×3 (05:20→21:50)
[2019-03-27 05:33] LABS: ABSOLUTE LYMPHOCYTES (AUTO) 0.5 10^3/uL (0.5-4.7); ABSOLUTE MONOCYTES (AUTO) 0.5 10^3/uL (0.1-1.4); ABSOLUTE NEUT (AUTO) 6.5 10^3/uL (1.7-8.2); BASOPHILS % (AUTO) 0.3 % (0-2); EOSINOPHILS % (AUTO) 0.3 % (0-6); HEMOGLOBIN 11.9 g/dL (13.5-17.0); LYMPHOCYTES % (AUTO) 6.3 % (13-45); MEAN CORPUSCULAR HEMOGLOBIN 31.2 pg (27.0-33.4); MEAN CORPUSCULAR VOLUME 89 fl (80-97); MONOCYTES % (AUTO) 6.9 % (3-13); PLATELET COUNT 126 10^3/uL (150-450); RED BLOOD COUNT 3.82 10^6/uL (4.35-5.55); RED CELL DISTRIBUTION WIDTH 13.8 % (11.5-14.0); SEGMENTED NEUTROPHILS % (AUTO) 86.2 % (42-78); TOTAL CELLS COUNTED % (AUTO) 100 %; WHITE BLOOD COUNT 7.6 10^3/uL (4.0-10.5)
[2019-03-27 05:53] LABS: ANION GAP 9 (5-19); BLOOD UREA NITROGEN 17 mg/dL (7-20); CALCIUM 8.4 mg/dL (8.4-10.2); CARBON DIOXIDE 22 mmol/L (22-30); CHLORIDE 104 mmol/L (98-107); GLUCOSE 160 mg/dL (75-110); SODIUM 135.1 mmol/L (137-145)
[2019-03-27] MEDS: ACETAMINOPHEN 325 MG TABLET PO PRN ×2 (06:10→17:04)
[2019-03-27] MEDS: INSULIN LISPRO 100 UNIT/ML 3 ML VIAL SUBCUT SCH ×3 (08:25→17:06)
--- NOTE | 2019-03-27 10:07 | PDOC PROGRESS REPORT ---
Subjective Progress Note for:: 03/27/19 Subjective:: DAI MARSH is a 68 year old male with a past medical history of diabetes, CKD 2, emphysema with remote pneumothorax. He presents with 24 hours of fever and right-sided chest pain which is sharp in nature exacerbated by deep breathing and movement. In the emergency room is found to have leukocytosis, a right sided peripheral abscess with associated empyema. Pulmonology is consulted, he started on empiric antibiotics and referred to the hospitalist for admission. He admits to recent aspiration or poor dentition. As a child he had several episodes of severe pneumonia. Patient is a [id number] history discontinuing 7 years ago. His father of coal mining silicosis. 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 03/25/2019. No acute events overnight. Patient is complaining of on and off mild pleuritic chest pain otherwise p.o. tolerant, ambulatory, having normal bowel and bladder movements, denies any fever, chills, nausea, vomiting, diarrhea, constipation or any urinary symptoms. 03/26/2019. No acute events overnight. Yesterday patient was febrile. Denies any chills, nausea, vomiting, diarrhea, constipation or any urinary symptoms. ID specialist consulted and suggesting AFP to rule out TB. Very localized hoarseness patient denies having been exposed to anybody with TB, recent foreign travel, visiting anybody at present, denies any night sweats or weight loss. 03/27/2019. No acute events overnight. 3 AFBs have been collected. Pending results. Patient very anxious to leave. 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 Denies any hemoptysis, any fever, shortness of breath, chest pain, nausea, vomiting, diarrhea, constipation or any urinary symptoms. Reason For Visit: LUNG ABSCESS,PNEUMONIA Physical Exam Vital Signs: Temp Pulse Resp BP Pulse Ox 99.0 F 88 19 131/66 H 95 03/27/19 04:03 03/27/19 04:03 03/27/19 04:03 03/27/19 04:03 03/27/19 04:03 Intake & Output 03/26/19 03/27/19 03/28/19 06:59 06:59 06:59 Intake Total 1920 1360 Balance 1920 1360 Weight 91.3 kg 90.6 kg General appearance: PRESENT: no acute distress, well-developed, well-nourished Head exam: PRESENT: atraumatic, normocephalic Eye exam: PRESENT: conjunctiva pink, EOMI, PERRLA. ABSENT: scleral icterus Ear exam: PRESENT: normal external ear exam Mouth exam: PRESENT: moist, tongue midline Neck exam: ABSENT: carotid bruit, JVD, lymphadenopathy, thyromegaly Respiratory exam: PRESENT: clear to auscultation rosanne. ABSENT: rales, rhonchi, wheezes Cardiovascular exam: PRESENT: RRR. ABSENT: diastolic murmur, rubs, systolic murmur Pulses: PRESENT: normal dorsalis pedis pul Vascular exam: PRESENT: normal capillary refill GI/Abdominal exam: PRESENT: normal bowel sounds, soft. ABSENT: distended, guarding, mass, organolmegaly, rebound, tenderness Rectal exam: PRESENT: deferred Extremities exam: PRESENT: full ROM. ABSENT: calf tenderness, clubbing, pedal edema Neurological exam: PRESENT: alert, awake, oriented to person, oriented to place, oriented to time, oriented to situation, CN II-XII grossly intact. ABSENT: motor sensory deficit Psychiatric exam: PRESENT: appropriate affect, normal mood. ABSENT: homicidal ideation, suicidal ideation Skin exam: PRESENT: dry, intact, warm. ABSENT: cyanosis, rash Results Laboratory Results: 03/27/19 05:14 03/27/19 05:14 03/27/19 03/27/19 05:14 05:14 WBC 7.6 RBC 3.82 L Hgb 11.9 L Hct 34.0 L MCV 89 MCH 31.2 MCHC 35.0 RDW 13.8 Plt Count 126 L Seg Neutrophils % 86.2 H Lymphocytes % 6.3 L Monocytes % 6.9 Eosinophils % 0.3 Basophils % 0.3 Absolute Neutrophils 6.5 Absolute Lymphocytes 0.5 Absolute Monocytes 0.5 Absolute Eosinophils 0.0 Absolute Basophils 0.0 Sodium 135.1 L Potassium 4.0 Chloride 104 Carbon Dioxide 22 Anion Gap 9 BUN 17 Creatinine 1.17 Est GFR ( Amer) > 60 Est GFR (Non-Af Amer) > 60 Glucose 160 H Calcium 8.4 03/23/19 23:40 Troponin I < 0.012 Impressions: Chest X-Ray 03/23/19 00:00 IMPRESSION: Possible right-sided empyema. A CT scan of the chest might prove helpful for further evaluation. copyright 2010 [employer]- All Rights Reserved Chest/Abdomen CTA 03/24/19 01:22 IMPRESSION: Empyema versus lung abscess in the lateral right thorax. Severe emphysema. TECHNICAL DOCUMENTATION: Quality ID # 436: Final reports with documentation of one or more dose reduction techniques (e.g., Automated exposure control, adjustment of the mA and/or kV according to patient size, use of iterative reconstruction technique) copyright 2010 [employer]- All Rights Reserved Assessment and Plan - Diagnosis (1) Lung abscess Qualifiers: Laterality: right Lung location: lower lobe of lung Is this a current diagnosis for this admission?: Yes Plan: Unknown etiology. Surgery consulted but recommendation is medical management at this point. No drainage planned. Day 5 IV antibiotics. Day 5 IV Zosyn. Received 3 days of IV vancomycin. DC as per ID recommendation. Cultures no growth so far. Infectious disease consulted. Recommendation is possibly sending patient home on either the clindamycin, moxifloxacin or Augmentin. Also recommending a fever rule out TB. Low likelihood of TB as patient denies having any exposure to any patient with TB, being in [facility] or visiting any variant present, recent foreign travel, night sweats or weight loss. AFP x3 collected. pending result. Isolation. Pulmonology consulted. Pending recommendations. If AFB negative. Patient could be sent home on either Augmentin, moxifloxacin or clindamycin. Notes. On the EMR patient was reported to have allergies to amoxicillin penicillin however he has been receiving Zosyn with no problem however when when I checked with the patient and his who is at the bedside if he is allergic to penicillins they both denied that he was allergic to any medications including penicillins. Continue empiric IV antibiotics. Follow-up cultures and AFB. (2) CKD (chronic kidney disease) Is this a current diagnosis for this admission?: Yes Plan: Resolved. Baseline 1.4. Mild elevation of creatinine. Likely due to IV antibiotics. Electrolytes WNL. Nonoliguric. Monitor glucose and volume status, avoid nephrotoxic agents. BMP tomorrow. (3) Emphysema of lung Is this a current diagnosis for this admission?: Yes Plan: Former heavy smoker. Continue DuoNeb's, supplemental oxygen, PRN BiPAP, incentive spirometry, flutter valve, supplemental oxygen. Pulmonology consulted. Pending recommendation. (4) Empyema Is this a current diagnosis for this admission?: Yes Plan: Per #1.
[2019-03-27] MEDS: INSULIN GLARGINE,HUM.REC.ANLOG 1,000 UNIT/10 ML VIAL SUBCUT SCH (21:50)
[2019-03-28] MEDS: IPRATROPIUM/ALBUTEROL 0.5-2.5 MG/3 ML AMPUL NEB SCH ×4 (02:02→19:56)
[2019-03-28] MEDS: PIPERACILLIN SODIUM/TAZOBACTAM 4.5 GM in NORMAL SALINE 100 ML IV SCH ×4 (04:00→21:57)
[2019-03-28] MEDS: HEPARIN SOD (PORCINE) 5,000 UNIT/ML 1 ML VIAL SUBCUT SCH ×3 (05:19→21:57)
[2019-03-28 06:38] LABS: ABSOLUTE EOSINOPHILS # (AUTO) 0.1 10^3/uL (0.0-0.6); ABSOLUTE LYMPHOCYTES (AUTO) 0.6 10^3/uL (0.5-4.7); ABSOLUTE MONOCYTES (AUTO) 0.6 10^3/uL (0.1-1.4); ABSOLUTE NEUT (AUTO) 6.2 10^3/uL (1.7-8.2); BASOPHILS % (AUTO) 0.4 % (0-2); EOSINOPHILS % (AUTO) 0.9 % (0-6); HEMOGLOBIN 11.7 g/dL (13.5-17.0); LYMPHOCYTES % (AUTO) 7.5 % (13-45); MEAN CORPUSCULAR HEMOGLOBIN 30.8 pg (27.0-33.4); MEAN CORPUSCULAR HGB CONC 34.5 g/dL (32.0-36.0); MEAN CORPUSCULAR VOLUME 89 fl (80-97); MONOCYTES % (AUTO) 7.9 % (3-13); PLATELET COUNT 145 10^3/uL (150-450); RED CELL DISTRIBUTION WIDTH 13.7 % (11.5-14.0); SEGMENTED NEUTROPHILS % (AUTO) 83.3 % (42-78); TOTAL CELLS COUNTED % (AUTO) 100 %; WHITE BLOOD COUNT 7.4 10^3/uL (4.0-10.5)
[2019-03-28 06:58] LABS: ALANINE AMINOTRANSFERASE 33 U/L (21-72); ALKALINE PHOSPHATASE 88 U/L (38-126); ANION GAP 9 (5-19); ASPARTATE AMINO TRANSFERASE 24 U/L (17-59); BILIRUBIN,DIRECT 0.4 mg/dL (0.0-0.4); BILIRUBIN,TOTAL 1.2 mg/dL (0.2-1.3); BLOOD UREA NITROGEN 18 mg/dL (7-20); CALCIUM 8.3 mg/dL (8.4-10.2); CARBON DIOXIDE 23 mmol/L (22-30); CHLORIDE 104 mmol/L (98-107); GLUCOSE 142 mg/dL (75-110); POTASSIUM 4.1 mmol/L (3.6-5.0); TOTAL PROTEIN 5.8 g/dL (6.3-8.2)
[2019-03-28] MEDS: INSULIN LISPRO 100 UNIT/ML 3 ML VIAL SUBCUT SCH ×3 (09:19→17:36)
[2019-03-28] MEDS ORDERED: LEVOFLOXACIN 750 MG TABLET PO SCH (10:00)
--- NOTE | 2019-03-28 11:38 | PDOC CONSULTATION ---
Consultation Consult Date: 03/27/19 Attending physician:: BRITTON SHELL Provider Consulted: NAEEM MCCULLOUGH Consult reason:: Lung infection History of Present Illness Admission Date/PCP: 03/24/19 03:[facility] History of Present Illness: DAI MANZANO is a 68 year old male with complaint of chest pain and chest subsequent work-up showed him to have an infected bullae however there was no air-fluid level and he states that up until the time of admission he had not experienced any shortness of breath or dyspnea on exertion occasional cough productive of yellow phlegm he denies hemoptysis his PPD was negative dates unknown. He denies history of chronic lung disease as a child or adolescent. He admits to exposure to large amounts of passive smoke as a child as well as an adult he himself smoked 1/2 packs a day for 35 years he is also worked for about 30 years and would work wheeze exposed to large amounts of glue, wood dust and lacquers. One pet dog no recent travel no angina-like chest pain sleeps on 1-2 pillows no PND no nocturnal cough rare really does not have any edema he is unaware of any snoring admits to restless sleep denies nocturia unrestful sleep or excessive daytime somnolence Past Medical History Cardiac Medical History: Denies: Coronary Artery Disease, Myocardial Infarction, Hypertension Pulmonary Medical History: Denies: Asthma, Bronchitis, Chronic Obstructive Pulmonary Disease (COPD), Pneumonia, Sleep Apnea Neurological Medical History: Denies: Seizures Endocrine Medical History: Reports: Diabetes Mellitus Type 2 Denies: Hyperthyroidism, Hypothyroidism Renal/ Medical History: Reports: Chronic Kidney Disease Denies: End Stage Renal Disease GI Medical History: Denies: Gastroesophageal Reflux Disease Musculoskeltal Medical History: Reports: Arthritis - Shoulder BILAT Denies: Fibromyalgia Psychiatric Medical History: Denies: Depression, Post Traumatic Stress Disorder Hematology: Denies: Anemia Past Surgical History Past Surgical History: Reports: Orthopedic Surgery - right rotator cuff repair Denies: Appendectomy, Cholecystectomy, Coronary Artery Bypass Graft, Gastric Bypass Surgery, Herniorrhaphy, Pacemaker, Tonsillectomy Social History Information Source: [facility], [facility] 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 Lives with: Family Smoking Status: Former Smoker Cigarettes Packs Per Day: 1.5 Number of Years Smokin Passive smoke exposure as: Both Frequency of Alcohol Use: None Hx Recreational Drug Use: No Hx Prescription Drug Abuse: No Do you have pets?: Yes Have you had any respiratory illnesses as a child?: No Have you been exposed to any sick contacts recently?: No Have you had any recent respiratory illnesses?: No Have you travelled outside of [place] in the past 12 months?: No - Advance Directive Resuscitation Status: Full Code Family History Family History: DM, Malignancy, Other - Silicosis Parental Family History Reviewed: Yes Children Family History Reviewed: Yes Sibling(s) Family History Reviewed.: Yes Medication/Allergy Home Medications: Metformin HCl 500 mg PO BID 04/15/18 Multivitamin [Tab-A-Alycia (Multiple Vitamin) Tablet] 1 tab PO DAILY 03/24/19 Allergies/Adverse Reactions: No Known Allergies Allergy (Unverified 03/27/19 06:08) Review of Systems Constitutional: PRESENT: chills, fatigue, fever(s). ABSENT: anorexia, he adache(s), night sweats, weight gain, weight loss Eyes: ABSENT: visual disturbances Ears: ABSENT: hearing changes Nose, Mouth, and Throat: ABSENT: mouth pain, sore throat Cardiovascular: PRESENT: dyspnea on exertion. ABSENT: edema, orthropnea, palpitations Respiratory: PRESENT: cough, dyspnea, sputum. ABSENT: hemoptysis Gastrointestinal: ABSENT: abdominal pain, bloating, coffee ground emesis, constipation, diarrhea, dysphagia, heartburn, hematemesis, hematochezia, melena Genitourinary: ABSENT: dysuria, nocturia Integumentary: ABSENT: pruritus, rash Neurological: ABSENT: abnormal gait, abnormal movements, abnormal speech, confusion, focal weakness, frequent falls, lack of coordination, memory loss, numbness Psychiatric: ABSENT: hallucinations, homidical ideation, suicidal ideation Endocrine: ABSENT: cold intolerance, heat intolerance Hematologic/Lymphatic: ABSENT: easy bruising, lymphadenopathy Allergic/Immunologic: ABSENT: seasonal rhinorrhea Physical Exam Vital Signs: Temp Pulse Resp BP Pulse Ox 98.4 F 76 18 116/69 93 03/28/19 07:12 03/28/19 09:25 03/28/19 09:25 03/28/19 07:12 03/28/19 09:25 Intake & Output 03/27/19 03/28/19 03/29/19 06:59 06:59 06:59 Intake Total 1360 1582 Output Total 0 Balance 1360 1582 Weight 90.6 kg 90.4 kg General appearance: PRESENT: no acute distress, cooperative, disheveled, well-developed, well-nourished Head exam: PRESENT: atraumatic, normocephalic Eye exam: PRESENT: conjunctiva pale, EOMI. ABSENT: nystagmus, periorbital swelling, scleral icterus Mouth exam: PRESENT: moist, neck supple, tongue midline Teeth exam: PRESENT: edentulous Neck exam: ABSENT: carotid bruit, full ROM, JVD, lymphadenopathy, meningismus, tenderness, thyromegaly, tracheal deviation, tracheostomy, other Respiratory exam: PRESENT: decreased breath sounds, prolonged expiratory phas, rales, rhonchi, unlabored. ABSENT: retraction, stridor, tachypnea Cardiovascular exam: PRESENT: RRR, +S1, +S2. ABSENT: tachycardia Pulses: PRESENT: normal radial pulses GI/Abdominal exam: PRESENT: soft. ABSENT: mass, tenderness Extremities exam: ABSENT: calf tenderness, clubbing, joint swelling, pedal edema Musculoskeletal exam: ABSENT: deformity, dislocation Neurological exam: PRESENT: alert, awake Psychiatric exam: PRESENT: appropriate affect Skin exam: PRESENT: dry, warm Results Laboratory Results: 03/28/19 06:25 03/28/19 06:25 03/28/19 03/28/19 06:25 06:25 WBC 7.4 RBC 3.80 L Hgb 11.7 L Hct 34.0 L MCV 89 MCH 30.8 MCHC 34.5 RDW 13.7 Plt Count 145 L Seg Neutrophils % 83.3 H Lymphocytes % 7.5 L Monocytes % 7.9 Eosinophils % 0.9 Basophils % 0.4 Absolute Neutrophils 6.2 Absolute Lymphocytes 0.6 Absolute Monocytes 0.6 Absolute Eosinophils 0.1 Absolute Basophils 0.0 Sodium 136.0 L Potassium 4.1 Chloride 104 Carbon Dioxide 23 Anion Gap 9 BUN 18 Creatinine 1.21 Est GFR ( Amer) > 60 Est GFR (Non-Af Amer) > 60 Glucose 142 H Calcium 8.3 L Total Bilirubin 1.2 AST 24 ALT 33 Alkaline Phosphatase 88 Total Protein 5.8 L Albumin 3.0 L 03/25/19 03:31 Sputum Gram Stain - Final 03/25/19 03:31 Sputum Sputum Culture - Final Pseudomonas Aeruginosa Reduced Normal Tiana 03/23/19 23:40 Troponin I < 0.012 Impressions: Chest X-Ray 03/23/19 00:00 IMPRESSION: Possible right-sided empyema. A CT scan of the chest might prove helpful for further evaluation. copyright 2010 [employer]- All Rights Reserved Chest/Abdomen CTA 03/24/19 01:22 IMPRESSION: Empyema versus lung abscess in the lateral right thorax. Severe emphysema. TECHNICAL DOCUMENTATION: Quality ID # [id number]: Final reports with documentation of one or more dose reduction techniques (e.g., Automated exposure control, adjustment of the mA and/or kV according to patient size, use of iterative reconstruction technique) copyright 2010 [employer]- All Rights Reserved Assessment & Plan - Diagnosis (1) Emphysema of lung Is this a current diagnosis for this admission?: Yes Plan: Advanced bullous emphysema dominating upper lobes bilaterally continue current bronchodilator therapy 1+ on the right is infected however I see no air-fluid level radiographically patient probably has some interstitial lung disease as there does appear to be some honeycombing at the bases (2) Lung abscess Qualifiers: Laterality: right Lung location: lower lobe of lung Is this a current diagnosis for this admission?: Yes Plan: Infected bullae (3) Pneumonia of right lung due to infectious organism Qualifiers: Lung location: middle lobe of lung Qualified Code(s): J18.1 - Lobar pneumonia, unspecified organism Is this a current diagnosis for this admission?: Yes Plan: Treatment as per infectious disease - Plan Summary Plan Summary: Be happy to continue following the patient on outpatient basis. Thank you very much for allowing me to see Mr. Manzano and he will participate in his care
--- NOTE | 2019-03-28 16:27 | PDOC PROGRESS REPORT ---
Subjective Progress Note for:: 03/28/19 Subjective:: DAI MARSH is a 68 year old male with a past medical history of diabetes, CKD 2, emphysema with remote pneumothorax. He presents with 24 hours of fever and right-sided chest pain which is sharp in nature exacerbated by deep breathing and movement. In the emergency room is found to have leukocytosis, a right sided peripheral abscess with associated empyema. Pulmonology is consulted, he started on empiric antibiotics and referred to the hospitalist for admission. He admits to recent aspiration or poor dentition. As a child he had several episodes of severe pneumonia. Patient is a [id number] history discontinuing 7 years ago. His father of coal mining silicosis. 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 03/25/2019. No acute events overnight. Patient is complaining of on and off mild pleuritic chest pain otherwise p.o. tolerant, ambulatory, having normal bowel and bladder movements, denies any fever, chills, nausea, vomiting, diarrhea, constipation or any urinary symptoms. 03/26/2019. No acute events overnight. Yesterday patient was febrile. Denies any chills, nausea, vomiting, diarrhea, constipation or any urinary symptoms. ID specialist consulted and suggesting AFP to rule out TB. Very localized hoarseness patient denies having been exposed to anybody with TB, recent foreign travel, visiting anybody at present, denies any night sweats or weight loss. 03/27/2019. No acute events overnight. 3 AFBs have been collected. Pending results. Patient very anxious to leave. 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 Denies any hemoptysis, any fever, shortness of breath, chest pain, nausea, vomiting, diarrhea, constipation or any urinary symptoms. 03/26/2019. No acute events overnight. Pending these results. Patient is still having occasional fevers. Denies any hemoptysis. Sputum culture grows pseudomonas aeruginosa. Patient is ambulating, p.o. tolerant, having normal bowel bladder movement. Will discharge tomorrow once AFB results are available and ID consult is in. Patient also hypoxic on room air and needs to be sent home on supplemental O2. Reason For Visit: LUNG ABSCESS,PNEUMONIA Physical Exam Vital Signs: Temp Pulse Resp BP Pulse Ox 99.2 F 82 18 117/61 90 L 03/28/19 11:23 03/28/19 14:44 03/28/19 14:44 03/28/19 11:23 03/28/19 14:44 Intake & Output 03/27/19 03/28/19 03/29/19 06:59 06:59 06:59 Intake Total 1360 1582 840 Output Total 0 0 Balance 1360 1582 840 Weight 90.6 kg 90.4 kg General appearance: PRESENT: no acute distress, well-developed, well-nourished Head exam: PRESENT: atraumatic, normocephalic Eye exam: PRESENT: conjunctiva pink, EOMI, PERRLA. ABSENT: scleral icterus Ear exam: PRESENT: normal external ear exam Mouth exam: PRESENT: moist, tongue midline Neck exam: ABSENT: carotid bruit, JVD, lymphadenopathy, thyromegaly Respiratory exam: PRESENT: clear to auscultation rosanne. ABSENT: rales, rhonchi, wheezes Cardiovascular exam: PRESENT: RRR. ABSENT: diastolic murmur, rubs, systolic murmur Pulses: PRESENT: normal dorsalis pedis pul Vascular exam: PRESENT: normal capillary refill GI/Abdominal exam: PRESENT: normal bowel sounds, soft. ABSENT: distended, guarding, mass, organolmegaly, rebound, tenderness Rectal exam: PRESENT: deferred Extremities exam: PRESENT: full ROM. ABSENT: calf tenderness, clubbing, pedal edema Neurological exam: PRESENT: alert, awake, oriented to person, oriented to place, oriented to time, oriented to situation, CN II-XII grossly intact. ABSENT: motor sensory deficit Psychiatric exam: PRESENT: appropriate affect, normal mood. ABSENT: homicidal ideation, suicidal ideation Skin exam: PRESENT: dry, intact, warm. ABSENT: cyanosis, rash Results Laboratory Results: 03/28/19 06:25 03/28/19 06:25 03/28/19 03/28/19 06:25 06:25 WBC 7.4 RBC 3.80 L Hgb 11.7 L Hct 34.0 L MCV 89 MCH 30.8 MCHC 34.5 RDW 13.7 Plt Count 145 L Seg Neutrophils % 83.3 H Lymphocytes % 7.5 L Monocytes % 7.9 Eosinophils % 0.9 Basophils % 0.4 Absolute Neutrophils 6.2 Absolute Lymphocytes 0.6 Absolute Monocytes 0.6 Absolute Eosinophils 0.1 Absolute Basophils 0.0 Sodium 136.0 L Potassium 4.1 Chloride 104 Carbon Dioxide 23 Anion Gap 9 BUN 18 Creatinine 1.21 Est GFR ( Amer) > 60 Est GFR (Non-Af Amer) > 60 Glucose 142 H Calcium 8.3 L Total Bilirubin 1.2 AST 24 ALT 33 Alkaline Phosphatase 88 Total Protein 5.8 L Albumin 3.0 L 03/25/19 03:31 Sputum Gram Stain - Final 03/25/19 03:31 Sputum Sputum Culture - Final Pseudomonas Aeruginosa Reduced Normal Tiana 03/23/19 23:40 Troponin I < 0.012 Impressions: Chest X-Ray 03/23/19 00:00 IMPRESSION: Possible right-sided empyema. A CT scan of the chest might prove helpful for further evaluation. copyright 2010 [employer]- All Rights Reserved Chest/Abdomen CTA 03/24/19 01:22 IMPRESSION: Empyema versus lung abscess in the lateral right thorax. Severe emphysema. TECHNICAL DOCUMENTATION: Quality ID # 436: Final reports with documentation of one or more dose reduction techniques (e.g., Automated exposure control, adjustment of the mA and/or kV according to patient size, use of iterative reconstruction technique) copyright 2010 [employer]- All Rights Reserved Assessment and Plan - Diagnosis (1) Lung abscess Qualifiers: Laterality: right Lung location: lower lobe of lung Is this a current diagnosis for this admission?: Yes Plan: Unknown etiology. Surgery consulted but recommendation is medical management at this point. No drainage planned. Day 6 IV antibiotics. Day 6 IV Zosyn. Received 3 days of IV vancomycin. DC as per ID recommendation. Sputum culture positive for pseudomonas aeruginosa pansensitive. Infectious disease consulted. Recommendation is possibly sending patient home on either the clindamycin, moxifloxacin or Augmentin. Also recommending a fever rule out TB. Low likelihood of TB as patient denies having any exposure to any patient with TB, being in retirement or visiting any variant present, recent foreign travel, night sweats or weight loss. AFP x3 collected. 2/3 AFB results are negative. Pulmonology consulted. Pending recommendations. If AFB negative. Patient could be sent home on either Augmentin, moxifloxacin or clindamycin. Notes. On the EMR patient was reported to have allergies to amoxicillin penicillin however he has been receiving Zosyn with no problem however when when I checked with the patient and his who is at the bedside if he is allergic to penicillins they both denied that he was allergic to any medications including penicillins. Continue empiric IV antibiotics. Follow-up cultures and AFB. (2) Pseudomonal pneumonia Qualifiers: Laterality: unspecified laterality Is this a current diagnosis for this admission?: Yes Plan: Likely community-acquired. Patient does have structural lung abnormality severe emphysema. Patient will need antibiotics for 2 to 3 weeks. ID consulted. Pending recommendations. (3) CKD (chronic kidney disease) Qualifiers: Chronic kidney disease stage: unspecified stage Qualified Code(s): N18.9 - Chronic kidney disease, unspecified Is this a current diagnosis for this admission?: Yes Plan: Resolved. Baseline 1.4. Mild elevation of creatinine. Likely due to IV antibiotics. Electrolytes WNL. Nonoliguric. Monitor glucose and volume status, avoid nephrotoxic agents. BMP tomorrow. (4) Emphysema of lung Is this a current diagnosis for this admission?: Yes Plan: Former heavy smoker. Continue DuoNeb's, supplemental oxygen, PRN BiPAP, incentive spirometry, flutter valve, supplemental oxygen. Pulmonology consulted. Recommending outpatient follow-up. Patient will be sent home on supplemental oxygen LABA's/LAMA's. (5) Empyema Is this a current diagnosis for this admission?: Yes Plan: Per #1.
--- NOTE | 2019-03-28 17:41 | Progress Note ---
Provider Note Provider Note: ID Consult Note Asked to review chart. Pt not seen or examined. See prior note for background. Interval events - pt reported no foreign travel, no TB contacts. Two AFB smears negative to date. Zosyn was started on 03/24. Sputum culture from 03/25 grew Pseudomonas aeruginosa and a reduced amount of normal joyce. Pt has had intermittent fevers. Pt was seen by Pulmonology Dr Cortes. Levaquin was started today 03/28 in addition to Zosyn, in anticipation of the patient being discharged home soon. Impression/Recommendations Agree with plan to send patient home with antibiotics for a prolonged duration to target what was isolated from his sputum. He does not have a lung abscess. There is no obvious fluid component. He has severe bullous emphysema and appears to have an infected lung bulla on the right. Given the chronicity of the bullous change (present but as apparent on CXR a year ago), I do not think that treating the patient until the radiographic abnormality resolves is a reasonable endpoint for duration of therapy. He should have resolution of the fevers and clinical improvement prior to discontinuing antibiotics. Would aim for treating him for 3-4 weeks with a broad spectrum agent that includes antipseudomonal activity. PO Levaquin is reasonable. The patient would need to be counseled on avoiding multivalent cation administration (e.g. multivitamin, calcium or iron or magnesium or zinc supplements, Tums, Maalox, Mylanta) concurrently with Levaquin to avoid chelating the fluoroquinolone. seen by Dr. Sebastian Neff MD [facility] Infectious Diseases pager [phone]
[2019-03-28] MEDS: ACETAMINOPHEN 325 MG TABLET PO PRN (17:45)
[2019-03-28] MEDS: INSULIN GLARGINE,HUM.REC.ANLOG 1,000 UNIT/10 ML VIAL SUBCUT SCH (21:58)
[2019-03-29] MEDS: IPRATROPIUM/ALBUTEROL 0.5-2.5 MG/3 ML AMPUL NEB SCH ×2 (02:18→08:49)
[2019-03-29] MEDS: PIPERACILLIN SODIUM/TAZOBACTAM 4.5 GM in NORMAL SALINE 100 ML IV SCH (03:04)
[2019-03-29 05:04] LABS: ABSOLUTE EOSINOPHILS # (AUTO) 0.1 10^3/uL (0.0-0.6); ABSOLUTE LYMPHOCYTES (AUTO) 0.5 10^3/uL (0.5-4.7); ABSOLUTE MONOCYTES (AUTO) 0.5 10^3/uL (0.1-1.4); ABSOLUTE NEUT (AUTO) 5.7 10^3/uL (1.7-8.2); BASOPHILS % (AUTO) 0.4 % (0-2); EOSINOPHILS % (AUTO) 1.5 % (0-6); HEMATOCRIT 34.9 % (37.9-51.0); LYMPHOCYTES % (AUTO) 7.2 % (13-45); MEAN CORPUSCULAR HGB CONC 34.5 g/dL (32.0-36.0); MEAN CORPUSCULAR VOLUME 90 fl (80-97); MONOCYTES % (AUTO) 7.5 % (3-13); PLATELET COUNT 152 10^3/uL (150-450); RED BLOOD COUNT 3.88 10^6/uL (4.35-5.55); RED CELL DISTRIBUTION WIDTH 13.3 % (11.5-14.0); SEGMENTED NEUTROPHILS % (AUTO) 83.4 % (42-78); TOTAL CELLS COUNTED % (AUTO) 100 %; WHITE BLOOD COUNT 6.8 10^3/uL (4.0-10.5)
[2019-03-29] MEDS: HEPARIN SOD (PORCINE) 5,000 UNIT/ML 1 ML VIAL SUBCUT SCH (05:25)
[2019-03-29 05:29] LABS: ALANINE AMINOTRANSFERASE 49 U/L (21-72); ALKALINE PHOSPHATASE 118 U/L (38-126); ANION GAP 12 (5-19); ASPARTATE AMINO TRANSFERASE 38 U/L (17-59); BILIRUBIN,DIRECT 0.3 mg/dL (0.0-0.4); BILIRUBIN,TOTAL 0.7 mg/dL (0.2-1.3); BLOOD UREA NITROGEN 18 mg/dL (7-20); CALCIUM 8.3 mg/dL (8.4-10.2); CARBON DIOXIDE 22 mmol/L (22-30); CHLORIDE 103 mmol/L (98-107); GLUCOSE 207 mg/dL (75-110); POTASSIUM 4.1 mmol/L (3.6-5.0); SODIUM 136.8 mmol/L (137-145)
[2019-03-29 08:19] VITALS: BP 115/59
--- NOTE | 2019-03-30 13:23 | PDOC DISCHARGE SUMMARY ---
General - Admit/Disc Date/PCP Admission Date/Primary Care Provider: 03/24/19 03:[facility] Discharge Date: 03/29/19 - Discharge Diagnosis (1) Lung abscess Is this a current diagnosis for this admission?: Yes (2) Pseudomonal pneumonia Is this a current diagnosis for this admission?: Yes (3) CKD (chronic kidney disease) Is this a current diagnosis for this admission?: Yes (4) Emphysema of lung Is this a current diagnosis for this admission?: Yes - Additional Information Resuscitation Status: Full Code Discharge Diet: As Tolerated, Regular Discharge Activity: Activity As Tolerated, Balance Activity w/Rest, Energy Conservation, Keep Legs Elevated Prescriptions: Albuterol Sulfate [Albuterol Sulfate Hfa] 18 gm IH Q6 PRN 30 Days #1 hfa.aer.ad PRN Reason: Levofloxacin [Levaquin] 750 mg PO DAILY 28 Days #28 tablet Salmeterol Xinafoate [Serevent Diskus 50 Mcg/Dose 28 Dose/Diskus] 50 mcg IH Q12 30 Days #1 each Tiotropium [place] [Spiriva Respimat] 4 gm IH DAILY 1 Days #1 mist.inhal Home Medications: Metformin HCl 500 mg PO BID 04/15/18 Multivitamin [Tab-A-Alycia (Multiple Vitamin) Tablet] 1 tab PO DAILY 03/24/19 Albuterol Sulfate [Albuterol Sulfate Hfa] 18 gm IH Q6 PRN 30 Days #1 hfa.aer.ad 03/29/19 Levofloxacin [Levaquin] 750 mg PO DAILY 28 Days #28 tablet 03/29/19 Salmeterol Xinafoate [Serevent Diskus 50 Mcg/Dose 28 Dose/Diskus] 50 mcg IH Q12 30 Days #1 each 03/29/19 Tiotropium [place] [Spiriva Respimat] 4 gm IH DAILY 1 Days #1 mist.inhal 03/29/19 History of Present Illness History of Present Illness: DAI MARSH is a 68 year old male with a past medical history of diabetes, CKD 2, emphysema with remote pneumothorax. He presents with 24 hours of fever and right-sided chest pain which is sharp in nature exacerbated by deep breathing and movement. In the emergency room is found to have leukocytosis, a right sided peripheral abscess with associated empyema. Pulmonology is consulted, he started on empiric antibiotics and referred to the hospitalist for admission. He admits to recent aspiration or poor dentition. As a child he had several episodes of severe pneumonia. Patient is a 16-kkuw-orva history discontinuing 7 years ago. His father of coal mining silicosis. 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 Hospital Course Hospital Course: (1) Lung abscess (Infected bullae) Severe obstructive lung disease (severe emphysema) could be the likely underlying risk. Surgery consulted but recommendation is medical management at this point. No drainage planned. Received 7 days of IV antibiotics. Received 7 days of IV Zosyn. Received 3 days of IV vancomycin. DC as per ID recommendation. Discharged on levofloxacin 750 mg daily for 4 weeks. Sputum culture positive for pseudomonas aeruginosa pansensitive. Infectious disease consulted. Recommendation is possibly sending patient home on either the clindamycin, moxifloxacin or Augmentin. Also recommending a fever rule out TB. Low likelihood of TB as patient denies having any exposure to any patient with TB, being in [facility] or visiting any variant present, recent foreign travel, night sweats or weight loss. AFB negative x3. Cultures pending. Pulmonology consulted. Recommendations noted. Notes. On the EMR patient was reported to have allergies to amoxicillin penicillin however he has been receiving Zosyn with no problem however when when I checked with the patient and his who is at the bedside if he is allergic to penicillins they both denied that he was allergic to any medications including penicillins. (2) Pseudomonal pneumonia High risk for pseudomonal pneumonia due to underlying structural lung disease. Likely community-acquired. Received 7 days of IV antibiotics. Received 7 days of IV Zosyn. Received 3 days of IV vancomycin. DC as per ID recommendation. Discharged on levofloxacin 750 mg daily for 4 weeks as per ID recommendation. (3) CKD (chronic kidney disease) Resolved. Creatinine back to baseline. Baseline 1.4. History of chronic CKD. Mild elevation of creatinine. Likely due to IV antibiotics. Electrolytes WNL. Nonoliguric. Daily monitoring of electrolytes and volume status. Nephrotoxic meds avoided. (4) Emphysema of lung Former heavy smoker. Started on DuoNeb's, supplemental oxygen, PRN BiPAP, incentive spirometry, flutter valve, supplemental oxygen. Pulmonology consulted. Recommendations noted. Was discharged on albuterol as needed, and LABA's/LAMA's. Appointment was made for him to see Dr. Cortes icer machine on 04/18/2019. Physical Exam Vital Signs: Temp Pulse Resp BP Pulse Ox 99.9 F 79 22 H 115/59 L 90 L 03/29/19 08:15 03/29/19 08:15 03/29/19 08:15 03/29/19 08:15 03/29/19 08:15 Intake & Output 03/29/19 03/30/19 03/31/19 06:59 06:59 06:59 Intake Total 1480 Output Total 1 Balance 1479 Weight 90 kg General appearance: PRESENT: no acute distress, well-developed, well-nourished Head exam: PRESENT: atraumatic, normocephalic Eye exam: PRESENT: conjunctiva pink, EOMI, PERRLA. ABSENT: scleral icterus Ear exam: PRESENT: normal external ear exam Mouth exam: PRESENT: moist, tongue midline Neck exam: ABSENT: carotid bruit, JVD, lymphadenopathy, thyromegaly Respiratory exam: PRESENT: clear to auscultation [place]sanne. ABSENT: rales, rhonchi, wheezes Cardiovascular exam: PRESENT: RRR. ABSENT: diastolic murmur, rubs, systolic murmur Pulses: PRESENT: normal dorsalis pedis pul Vascular exam: PRESENT: normal capillary refill GI/Abdominal exam: PRESENT: normal bowel sounds, soft. ABSENT: distended, guarding, mass, organolmegaly, rebound, tenderness Rectal exam: PRESENT: deferred Extremities exam: PRESENT: full ROM. ABSENT: calf tenderness, clubbing, pedal edema Neurological exam: PRESENT: alert, awake, oriented to person, oriented to place, oriented to time, oriented to situation, CN II-XII grossly intact. ABSENT: motor sensory deficit Psychiatric exam: PRESENT: appropriate affect, normal mood. ABSENT: homicidal ideation, suicidal ideation Skin exam: PRESENT: dry, intact, warm. ABSENT: cyanosis, rash Results Laboratory Results: 03/29/19 04:15 03/29/19 04:15 03/27/19 00:30 Sputum AFB Smear Concentration - Final 03/27/19 00:30 Sputum Acid Fast Bacilli Smear - Final 03/26/19 10:20 Sputum AFB Smear Concentration - Final 03/26/19 10:20 Sputum Acid Fast Bacilli Smear - Final 03/25/19 03:31 Sputum AFB Smear Concentration - Final 03/25/19 03:31 Sputum Acid Fast Bacilli Smear - Final 03/23/19 23:40 Troponin I < 0.012 Impressions: Chest X-Ray 03/23/19 00:00 IMPRESSION: Possible right-sided empyema. A CT scan of the chest might prove helpful for further evaluation. copyright 2010 [employer]- All Rights Reserved Chest/Abdomen CTA 03/24/19 01:22 IMPRESSION: Empyema versus lung abscess in the lateral right thorax. Severe emphysema. TECHNICAL DOCUMENTATION: Quality ID # 436: Final reports with documentation of one or more dose reduction techniques (e.g., Automated exposure control, adjustment of the mA and/or kV according to patient size, use of iterative reconstruction technique) copyright 2011 [employer]- All Rights Reserved Qualifiers - * PATIENT BEING DISCHARGED WITH ANY OF THE FOLLOWING DIAGNOSIS: No Acute Heart Failure - Is this a Heart Failure Patient?: No
== END 2019-03-29 08:58 | disposition home or self-care (01) | DRG 177 ==
LOC: ER 22:38 → EH 03-24 03:38 → 5 03-24 05:33 → 3N 03-26 11:39
PROVIDERS: ADMIT Internal Medicine; ATTEND Internal Medicine
DX: J85.1 Abscess of lung with pneumonia (principal); J15.1 Pneumonia due to Pseudomonas; J43.9 Emphysema, unspecified; E11.22 Type 2 diabetes mellitus with diabetic chronic kidney disease; N18.2 Chronic kidney disease, stage 2 (mild); N40.0 Benign prostatic hyperplasia without lower urinary tract symptoms; M19.012 Primary osteoarthritis, left shoulder; M19.011 Primary osteoarthritis, right shoulder; Z87.891 Personal history of nicotine dependence; Z79.84 Long term (current) use of oral hypoglycemic drugs
CPT/HCPCS: 36415; 71046; 71275; 80048; 80053; 80202; 81001; 82962; 83690; 84484; 85025; 85610; 85730; 87015; 87040; 87070; 87077; 87116; 87186; 87205; 87206; 93005; 93010; 94640; 94667; 94668; 94799; 99285; J1644; J1815; J2543; J3370; J3490; J7040; J7050; J7060; J7620

== ENCOUNTER → 2019-04-18 | Outpatient (CLI) | payer MEDICARE ==
[2019-04-18 11:45] LABS: ABSOLUTE EOSINOPHILS # (AUTO) 0.1 10^3/uL (0.0-0.6); ABSOLUTE MONOCYTES (AUTO) 0.4 10^3/uL (0.1-1.4); ABSOLUTE NEUT (AUTO) 3.4 10^3/uL (1.7-8.2); BASOPHILS % (AUTO) 0.4 % (0-2); EOSINOPHILS % (AUTO) 2.7 % (0-6); HEMATOCRIT 43.6 % (37.9-51.0); LYMPHOCYTES % (AUTO) 20.2 % (13-45); MEAN CORPUSCULAR HEMOGLOBIN 30.4 pg (27.0-33.4); MEAN CORPUSCULAR HGB CONC 34.3 g/dL (32.0-36.0); MEAN CORPUSCULAR VOLUME 89 fl (80-97); MONOCYTES % (AUTO) 7.7 % (3-13); PLATELET COUNT 156 10^3/uL (150-450); RED BLOOD COUNT 4.93 10^6/uL (4.35-5.55); RED CELL DISTRIBUTION WIDTH 13.5 % (11.5-14.0); TOTAL CELLS COUNTED % (AUTO) 100 %
--- NOTE | 2019-04-18 14:56 | RADIOLOGY REPORT (SQ) ---
EXAM DESCRIPTION: CHEST PA/LATERAL COMPLETED DATE/TIME: 04/18/2019 11:34 am REASON FOR STUDY: ABSCESS OF LUNG WITH PNEUMONIA COMPARISON: CT dated 03/24/2019. Chest x-ray dated 03/23/2019. EXAM PARAMETERS: NUMBER OF VIEWS: two views TECHNIQUE: Digital Frontal and Lateral radiographic views of the chest acquired. RADIATION DOSE: NA LIMITATIONS: none FINDINGS: LUNGS AND PLEURA: Emphysematous changes. Focal irregular density in the lateral right gloria g, slightly smaller and no longer cavitary. Lungs are otherwise clear. No pleural effusion or pneum othorax. MEDIASTINUM AND HILAR STRUCTURES: No masses or contour abnormalities. HEART AND VASCULAR STRUCTURES: Heart normal size. No evidence for failure. BONES: No acute findings. HARDWARE: None in the chest. Left shoulder prosthesis. OTHER: No other significant finding. IMPRESSION: COPD. THE CAVITARY LESION IN THE LATERAL RIGHT LUNG IS SLIGHTLY SMALLER AND NO LONGER H A CAVITARY COMPONENT. TECHNICAL DOCUMENTATION: JOB ID: [id number] [employer]- All Rights Reserved Reading location - IP/workstation name: [email or web address]
[2019-04-19 13:37] LABS: ANTICHROMATIN AB <0.2 AI (0.0-0.9); CENTROMERE B AB <0.2 AI (0.0-0.9); JO-1 ANTIBODY (ANACOMP) <0.2 AI (0.0-0.9); SJOGREN'S ANTI-SS-B AB <0.2 AI (0.0-0.9); SJOGREN'S SS-A ANTIBODY <0.2 AI (0.0-0.9)
[2019-04-19 17:02] LABS: DNA DOUBLE STRAND ANTIBODY ANA <1 IU/mL (0-9)
[2019-04-19 17:36] LABS: CYTOPLASMIC (C-ANCA) <1:20 titer (Neg:<1:20)
[2019-04-19 19:06] LABS: ATYPICAL PANCA <1:20 titer (Neg:<1:20)
== END ==
LOC: OD 10:31
PROVIDERS: ATTEND Registered Nurse
DX: J85.1 Abscess of lung with pneumonia (principal); J44.9 Chronic obstructive pulmonary disease, unspecified
CPT/HCPCS: 36415; 71046; 85025; 86021; 86225; 86235; 86430

== ENCOUNTER → 2019-08-25 | Outpatient (CLI) | payer OTHER, MEDICARE ==
--- NOTE | 2019-08-25 10:44 | RADIOLOGY REPORT (SQ) ---
EXAM DESCRIPTION: CHEST PA/LATERAL COMPLETED DATE/TIME: 08/25/2019 10:34 am REASON FOR STUDY: PERSONAL HISTORY OF PNEUMONIA (RECURRENT) COMPARISON: CT angio chest 03/24/2019 Two-view chest 04/18/2019 EXAM PARAMETERS: NUMBER OF VIEWS: two views TECHNIQUE: Digital Frontal and Lateral radiographic views of the chest acquired. RADIATION DOSE: NA LIMITATIONS: none FINDINGS: LUNGS AND PLEURA: No acute infiltrates. No pleural effusion or pneumothorax. Chronic right pleural thickening along the right lateral 4th 5th and 6th ribs. Upper lobes are hyperinflated and hyperlucent from obstructive disease. MEDIASTINUM AND HILAR STRUCTURES: No masses or contour abnormalities. HEART AND VASCULAR STRUCTURES: Heart normal size. No evidence for failure. BONES: Left humeral head replacement HARDWARE: None in the chest. OTHER: No other significant finding. IMPRESSION: No acute findings. Obstructive lung disease TECHNICAL DOCUMENTATION: JOB ID: [id number] [employer]- All Rights Reserved Reading location - IP/workstation name: [email or web address]
== END ==
LOC: OD 10:23
PROVIDERS: ATTEND Registered Nurse
DX: Z87.01 Personal history of pneumonia (recurrent) (principal)
CPT/HCPCS: 71046

== ENCOUNTER → 2020-09-29 | Outpatient (CLI) | payer OTHER, MEDICARE ==
[~2020-09-29] MED LIST changes: +COVID-19 VACCINE (PFIZER)/PF 30 MCG/0.3 ML VIAL IM ONE; +EPINEPHRINE INJ/PF 1 MG/1 ML AMPULE IM PRN; -PROPOFOL INJ 200 MG/20 ML VIAL IV ONE
== END ==
LOC: EMPHEALTH 06:06
PROVIDERS: ATTEND Internal Medicine
DX: Z23 Encounter for immunization (principal)
CPT/HCPCS: 91300